=== PATIENT | female | born 1950 | race Caucasian/White ===

== ENCOUNTER 2019-10-25 01:34 | Outpatient (CLI) | payer MEDICARE, OTHER, SELFPAY ==
[2019-10-25 19:16] LABS: SARS-CoV-2 RNA PCR Negative
== END 2019-10-25 01:35 | disposition home or self-care (01) ==
LOC: ANHCOVIDDT 01:36
PROVIDERS: PCP Internal Medicine; Visit Provider Internal Medicine Gastroenterology
DX: Z01.818 Encounter for other preprocedural examination (principal); Z11.59 Encounter for screening for other viral diseases
CPT/HCPCS: 87635; C9803; U0003

== ENCOUNTER 2019-10-27 00:43 | Day surgery (SDC) | payer MEDICARE, OTHER, SELFPAY ==
[2019-10-19 14:24] VITALS: BMI 31.4
[2019-10-27 08:24] VITALS: BP 116/76; PULSE 72; RESP 17; TEMP 36.4; O2SAT 99
[2019-10-27] MEDS: LACTATED RINGERS 1,000 ML 150 ML IV CONT (08:34)
--- NOTE | 2019-10-27 08:57 | WPDANESEPPF ---
Anes - Initial Pre Proc Eval Procedure: Operation Date: 10/27/19 09:00 Proposed Procedures p Screening Colonoscopy - Ricki Coyle MD Date/Time: 10/27/19 08:57 Surgeon: Ricki Coyle MD Pre Op Diagnosis: Neoplasm Screening Patient Data Age: 69 Gender: F Height: 5 ft 2 in Weight: 77.9 kg Last Vital Signs Temp 97.6 F 10/27/19 08:24 Pulse 72 10/27/19 08:24 Resp 17 10/27/19 08:24 BP 116/76 10/27/19 08:24 Pulse Ox 99 10/27/19 08:24 Allergies Allergy/AdvReac Type Severity Reaction Status Date / Time cephalexin [From Keflex] Allergy Mild Rash Verified 10/27/19 08:20 Home Medications Medication Instructions Recorded Confirmed Type cholecalciferol (vitamin D3) 1,250 50,000 unit PO WEEKLY #13 tablet 09/11/19 10/27/19 Rx mcg (50,000 unit) tablet levothyroxine 50 mcg tablet 50 mcg PO DAILY #90 tablet 09/30/19 10/27/19 Rx vfwsrdkxxaks-udgi-chzbq acid 1 tablet PO DAILY 10/19/19 10/27/19 History [Centrum] multivitamin with minerals 1 tablet PO DAILY 10/27/19 10/27/19 History [Hair,Skin and Nails] Patient hx anesthesia problems: none Family hx anesthesia problems: none PMFSH Past Medical History Medical History (Updated 10/27/19 @ 08:53 by Compa Beckwith MD) Hypothyroid Social History Social History Smoking status: Never smoker Second hand tobacco smoke exposure: No Alcohol intake: current Anes - Eval Final PreProcedure Day of Procedure 10/27/19 08:57 Patient weight: normal Heart: regular rate and rhythm Lungs: clear to auscultation Airway: Mallampati scale class II Neurological: alert and oriented Last oral intake: >/= 8 hours ASA classification: II Emergent: no Anesthetic plan: proceed Anesthesia type and monitoring: general GIVS and standard monitoring Informed Consent: The patient's anesthetic plan and its attendant risks and benefits were discussed with the patient/family/POA. Questions were solicited and answers provided to the satisfaction of the patient/family/POA.
--- NOTE | 2019-10-27 08:59 | WPDGICN ---
Assessment and Plan Assessment and plan (1) Encounter for screening for colorectal malignant neoplasm: Code(s): Z12.11 - Encounter for screening for malignant neoplasm of colon; Z12.12 - Encounter for screening for malignant neoplasm of rectum Status: Acute Assessment and Plan: Patient at regular risk for colon cancer. Plan is for screening colonoscopy now in a 10 year intervals if no polyps are found. GI Consult Note Consult date/time: 10/27/19 08:59 HPI: Doris Silva is a 69 year old female seen in evaluation at the request of Dr George. Patient presents for neoplasia screening colonoscopy. Her current weight appetite bowel movements are normal. She denies abdominal pain. She denies any blood in her stools. Her bowel habits are regular. Her last colonoscopy was 10 years ago. Review of Systems Review of Systems: All systems reviewed & are unremarkable except as noted in HPI and below PMFSH Past Medical History Medical History Hypothyroid Family History Family History Mother Family history of malignant neoplasm of breast in first degree relative Acute myocardial infarction Family history of malignant neoplasm of thyroid Sibling Patient's sister is in good health Patient's brother is in good health Father Patient's father is Other Diabetes mellitus Family history of allergic disorder Hypertension Social History Social History Smoking status: Never smoker Second hand tobacco smoke exposure: No Alcohol intake: current Meds Home Medications and Allergies Home Medications Medication Instructions Recorded Confirmed Type cholecalciferol (vitamin D3) 1,250 50,000 unit PO WEEKLY #13 tablet 09/11/19 10/27/19 Rx mcg (50,000 unit) tablet levothyroxine 50 mcg tablet 50 mcg PO DAILY #90 tablet 09/30/19 10/27/19 Rx lzuzdxiwpbtx-vhxv-rlzlc acid 1 tablet PO DAILY 10/19/19 10/27/19 History [Centrum] multivitamin with minerals 1 tablet PO DAILY 10/27/19 10/27/19 History [Hair,Skin and Nails] Allergies Allergy/AdvReac Type Severity Reaction Status Date / Time cephalexin [From Keflex] Allergy Mild Rash Verified 10/27/19 08:20 Vital Signs Vital Signs - 24 hr 10/27/19 08:24 Temperature 97.6 F Pulse Rate 72 Respiratory Rate 17 Blood Pressure 116/76 Pulse Oximetry 99 Exam Narrative: Exam Narrative: Physical exam reveals her to be a alert. Vital signs stable. HEENT exam unremarkable. Lungs are clear to auscultation and percussion. Heart is without murmur or extra sounds. Abdominal exam bowel sounds are present soft nontender with no hepatosplenomegaly. Digital external rectal exam normal.
[2019-10-27 09:33] VITALS: BP 117/57; PULSE 65; RESP 18; O2SAT 94
[2019-10-27 09:43] VITALS: BP 109/63; PULSE 69; RESP 19; O2SAT 97
[2019-10-27 09:53] VITALS: BP 114/71; PULSE 61; RESP 18; O2SAT 98
== END 2019-10-27 10:03 | disposition home or self-care (01) ==
PROVIDERS: PCP Internal Medicine; Visit Provider Internal Medicine Gastroenterology
PROC: 0DJD8ZZ Inspection of Lower Intestinal Tract, Via Natural or Artificial Opening Endoscopic (ICD-10-PCS; CPT 45378; principal; 2019-10-27 09:00)
DX: Z12.11 Encounter for screening for malignant neoplasm of colon (principal); K64.8 Other hemorrhoids; E03.9 Hypothyroidism, unspecified
CPT/HCPCS: G0121; J2704; J7120

== ENCOUNTER 2020-05-10 07:15 | Outpatient (CLI) | payer MEDICARE, OTHER, SELFPAY ==
--- NOTE | ~2020-05-10 | MM_ITS ---
EXAMINATION: MM screening julio c BI w derek HISTORY: Screening mammogram TECHNIQUE: Craniocaudal and mediolateral oblique 3-D tomosynthesis images were obtained and synthetic 2-D images were generated. CAD analysis was submitted and interpreted. COMPARISON: 03/15/2019 bilateral diagnostic digital mammogram and limited left breast ultrasound 07/29/2018, 06/16/2017, 06/13/2016 bilateral digital screening mammogram examinations BREAST PARENCHYMAL COMPOSITION: The breasts are almost entirely fatty. FINDINGS: There is no evidence of suspicious mass, calcification, or architectural distortion to sugg est malignancy in either breast. There has been no suspicious interval change. IMPRESSION: 1. No mammographic evidence of malignancy. 2. Recommend routine screening mammography in one year. BI-RADS Category 1: Negative Reviewed, dictated and finalized at location A. ENT SERVICES DIRECTOR
== END 2020-05-10 07:16 | disposition home or self-care (01) ==
LOC: ANHIMG 07:19
PROVIDERS: PCP Internal Medicine; Visit Provider Nurse Practitioner Obstetrics & Gynecology
DX: Z12.31 Encounter for screening mammogram for malignant neoplasm of breast (principal)
CPT/HCPCS: 77063; 77067

== ENCOUNTER 2021-06-10 09:33 | Outpatient (CLI) | payer MEDICARE, OTHER, SELFPAY ==
--- NOTE | ~2021-06-10 | MM_ITS ---
EXAMINATION: MM screening julio c BI w derek HISTORY: Screening mammogram TECHNIQUE: Craniocaudal and mediolateral oblique 3-D tomosynthesis images were obtained and synthetic 2-D images were generated. CAD analysis was submitted and interpreted. COMPARISON: 05/10/2020 bilateral screening mammogram 03/15/2019 diagnostic bilateral mammogram and limited left breast ultrasound 07/29/2018 bilateral screening mammogram BREAST PARENCHYMAL COMPOSITION: The breasts are almost entirely fatty. FINDINGS: Several stable benign intramammary lymph nodes and occasional benign calcifications are aga in present. There is no evidence of suspicious mass, calcification, or architectural distortion to devries ggest malignancy in either breast. There has been no suspicious interval change. IMPRESSION: 1. No mammographic evidence of malignancy. 2. Recommend routine screening mammography in one year. BI-RADS Category 2: Benign finding(s). Reviewed, dictated and finalized at location A. CUTTER APPRENTICE
== END 2021-06-10 09:34 | disposition home or self-care (01) ==
LOC: ANHIMG 09:36
PROVIDERS: PCP Internal Medicine; Visit Provider Nurse Practitioner Obstetrics & Gynecology
DX: Z12.31 Encounter for screening mammogram for malignant neoplasm of breast (principal)
CPT/HCPCS: 77063; 77067

== ENCOUNTER → 2021-08-22 10:14 | Outpatient (CLI) | payer MEDICARE, OTHER, SELFPAY ==
--- NOTE | ~2021-08-22 | DEXA_ITS ---
Bone Density Report Name: MATTHIEU ARSHAD Age: 71 Sex: Female Ethnicity: White Date of : 1950 Indication: postmenopausal; screening for osteoporosis; hysterectomy; Referring Provider: Sybil, Rima Singer Study: Bone densitometry was performed. Exam Date: August 22, 2021 Accession number: [id number] Bone Density: Region BMD T-score Z-score Classification AP Spine (L1-L4) 0.849 -1.8 0.3 Osteopenia Femoral Neck (Left) 0.633 -1.9 -0.1 Osteopenia Total Hip (Left) 0.812 -1.1 0.5 Osteopenia Femoral Neck (Right) 0.654 -1.8 0.1 Osteopenia Total Hip (Right) 0.828 -0.9 0.6 Normal Total Hip Mean 0.820 -1.0 0.6 Normal World Health Organization criteria for BMD impression classify patients as: Normal (T-score at or above -1.0), Osteopenia (T-score between -1.0 and -2.5), or Osteoporosis (T-score at or below -2.5). 10-year Fracture Risk(1): Major Osteoporotic Fracture 11% Hip Fracture 1.9% Reported Risk Factors: [place] (), Neck BMD=0.633, BMI=35.9 (1) FRAX(R) Version 3.08. Fracture probability calculated for an untreated patient. Fracture probability may be lower if the patient has received treatment. Clinical Information Provided by Patient: Has used the following medications: Vitamin D Has the following medical conditions: Hysterectomy Patient maximum height was 62 Menopause Age: 48 No regular weight bearing exercise Does not regularly consume dairy products Drinks caffeinated beverages Onset of menses at age 13 Number of children 2 Impression: The patient has low bone mass, based on the Left Femoral Neck T-score. The patient has an estimated ten-year risk of hip fracture of 1.9% and an estimated ten-year risk of major fracture of 11%, based on the WHO FRAX algorithm. Discussion: BONE DENSITY IS LOW AT ONE OR MORE SKELETAL SITES. This patient's lowest T-score is low at one or more skeletal sites. It meets the World Health Organization's (WHO) criteria for ?low bone mass? (T-score between -1.0 and -2.5). The patient's 10-year risk of fracture as calculated by FRAX is less than the threshold where pharmacological therapy is recommended by the National Osteoporosis Foundation (NOF). However, all treatment decisions require clinical judgment and consideration of individual patient factors, including patient preferences, comorbidities, previous drug use, risk factors not captured in the FRAX model (e.g., frailty, falls, vitamin D deficiency, increased bone turnover, interval significant decline in bone density) and possible under or overestimation of fracture risk by FRAX. The patient should follow a healthful lifestyle (good nutrition with adequate calcium and vitamin D, and appropriate weight-bearing exercise). Follow-Up: Consider repeating this study in 2 to 3 years to reassess this
== END ==
PROVIDERS: PCP Internal Medicine; Visit Provider Nurse Practitioner Obstetrics & Gynecology
DX: Z78.0 Asymptomatic menopausal state (principal); M85.88 Other specified disorders of bone density and structure, other site; M85.852 Other specified disorders of bone density and structure, left thigh; M85.851 Other specified disorders of bone density and structure, right thigh
CPT/HCPCS: 77080

== ENCOUNTER 2021-11-08 11:50 | Emergency (ER) | payer MEDICARE, OTHER, SELFPAY ==
--- NOTE | ~2021-11-08 | XR_ITS ---
EXAMINATION: XR chest 2V 11/08/2021 12:34 INDICATION: Shortness of breath PROCEDURE: 2 view chest COMPARISON: No prior studies FINDINGS: The lungs are clear. The cardiomediastinal silhouette is within normal limits. There are no pleural effusions. There is no pneumothorax suspected. There are cholecystectomy clips. IMPRESSION: 1: NO ACUTE CARDIOPULMONARY DISEASE. Reviewed, dictated and finalized at location A.
--- NOTE | ~2021-11-08 | XR_ITS ---
EXAMINATION: XR shoulder LT min 2V DATE: 11/08/2021 14:11 INDICATION: Left shoulder pain. TECHNIQUE: 4 views of left shoulder were obtained. COMPARISON: None. FINDINGS: Bone alignment is normal. No fracture. Joint spaces are normal. IMPRESSION: 1. Normal left shoulder. Reviewed, dictated and finalized at location A. IMPRESSION: 1. Normal left shoulder.
[2021-11-08 11:53] VITALS: BP 156/92; PULSE 80; RESP 16; TEMP 36.4; O2SAT 99
--- NOTE | 2021-11-08 11:58 | ECG_ITS ---
Measurements Intervals [place] Rate: 74 P: 43 ME: 142 QRS: 32 QRSD: 77 T: 29 QT: 354 QTc: 395 Interpretive Statements SINUS RHYTHM POSSIBLE LEFT ATRIAL ENLARGEMENT BORDERLINE T WAVE ABNORMALITY- INFERIOR LEADS BORDERLINE ECG Electronically Signed On 11-08-2021 16:46:07 CDT by Neil Horn D.O.
[2021-11-08 12:23] LABS: Basophils Percent Auto 0.6 % (0.2-1.2); Eosinophils Absolute Auto 0.2 K/mm3 (0-0.3); Eosinophils Percent Auto 2.9 % (0-4.4); Hematocrit 44.3 % (37.0-47.0); Hemoglobin 14.2 g/dL (12.0-15.0); Immature Granulocyte Absolute 0.02 K/mm3 (0.00-0.031); Immature Granulocyte Percent A 0.3 % (0-0.5); Lymphocytes Absolute Auto 1.66 K/mm3 (0.9-3.2); Mean Corpuscular HGB Conc 32.1 g/dl (32-36); Mean Corpuscular Hemoglobin 29.6 pg (26-34); Mean Corpuscular Volume 92.5 fl (80-100); Mean Platelet Volume 11.4 fl (7.4-10.4); Monocytes Absolute Auto 0.7 K/mm3 (0.1-0.6); Monocytes Percent Auto 9.4 % (2.6-8.5); Neutrophils Absolute Auto 4.4 K/mm3 (1.3-6.7); Neutrophils Percent Auto 62.8 % (45.5-73.1); Platelet Count Result 233 k/mm3 (150-375); Red Blood Count 4.79 M/mm3 (4.2-5.4); Red Cell Distribution Width 12.9 % (11.5-14.5); White Blood Count 6.9 K/mm3 (4.5-10.0)
[2021-11-08 12:35] LABS: Alanine Aminotransferase 20 U/L (6-35); Albumin Level 4.7 g/dL (3.5-5.1); Alkaline Phosphatase 84 U/L (38-126); Anion Gap 7 mmol/L (8-16); Aspartate Amino Transferase 24 U/L (14-36); Bilirubin,Total 0.8 mg/dL (0.2-1.3); Blood Urea Nitrogen 14 mg/dL (7-17); Calcium 9.6 mg/dL (8.4-10.2); Carbon Dioxide 28 mmol/L (22-30); Chloride 106 mmol/L (98-107); Estimated CRCL calculation 50 ml/min; Estimated Glomerular Filt Rate > 60; Glucose 101 mg/dL (65-110); Potassium 4.3 mmol/L (3.4-5.0); Sodium 141 mmol/L (137-145)
[2021-11-08 13:09] VITALS: BP 154/88; PULSE 70; PULSE 76; RESP 14; O2SAT 100
[2021-11-08 13:10] VITALS: O2SAT 100
[2021-11-08 14:15] LABS: INR 1.1; Partial Thromboplastin Time 30.8 SECONDS (22.3-36.8); Prothrombin Time 13.3 Seconds (11.1-14.7)
[2021-11-08 14:19] LABS: D Dimer 0.27 ug/mL (<0.48)
[2021-11-08 14:19] LABS: Troponin I < 0.012 ng/mL (0.000-0.034)
--- NOTE | 2021-11-08 14:46 | ED.SOB ---
HPI - SOB/Dyspnea General Chief Complaint: Shortness of Breath/Dyspnea Stated Complaint: left arm pain, fast hr Time Seen by Provider: 11/08/21 13:09 Source: patient and RN notes reviewed Mode of arrival: ambulatory Limitations: no limitations History of Present Illness HPI Narrative: This is a 71 year old female who presents for evaluation of shortness of breath and left shoulder pain. Patient has been having left shoulder pain for a year. She reports her pain is mostly at night. This morning her pain seems to last longer. She reports left shoulder pain that radiates to her elbow. This pain is worse with lifting her arm. Patient also states she tested positive for COVID in the beginning of September and she had a mild case. Since September, she has felt shortness of breath with exertion. She noticed that her heart rate increased to [address] but her oxygen saturation was fine. She denies having associated chest pain . She also reports October 18 and she had episode of nausea, decreased appetite, diarrhea and fatigue. She also had another episode 2 weeks ago. She was seen by her PCP yesterday for evaluation of her dyspnea on exertion. She was prescribed advair, and her PCP plans to order stress test and ECHO. She states her shortness of breath has improved since using her advair. She came to ER today because they were concerned about her left shoulder pain, and wanted to make sure she did not have heart attack. She denies chest pain. She also denies left shoulder pain at this time. Related Data Home Medications Medication Instructions Recorded Confirmed multivitamin-ferrous 1 tablet PO DAILY 10/19/19 11/07/21 fumarate-folic acid 18 mg-400 mcg tablet (Centrum) multivitamin with minerals 1 tablet PO DAILY 10/27/19 11/07/21 (Hair,Skin and Nails tablet) ketoconazole 2 % shampoo 1 applic topical 2XW 07/18/20 11/07/21 oxiconazole 1 % lotion (Oxistat) 1 applic topical DAILY 07/18/20 11/07/21 hydroxychloroquine 200 mg tablet 200 mg PO DAILY 10/14/21 11/07/21 (Plaquenil) Allergies Allergy/AdvReac Type Severity Reaction Status Date / Time cephalexin [From Keflex] Allergy Mild Rash Verified 11/07/21 09:24 Review of Systems Review of Systems: All systems reviewed & are unremarkable except as noted in HPI and below Constitutional: Constitutional: Denies chills, Reports fatigue and Denies fever(s) Cardiovascular: Cardiovascular: Denies chest pain, Reports rapid heart rate and Denies radiating jaw, neck or arm pain Respiratory: Respiratory: Denies chest congestion, Denies cough and Reports dyspnea Gastrointestinal: Gastrointestinal: Denies abdominal pain, Reports diarrhea and Reports nausea Neurologic: Denies headache(s) and Denies focal weakness Psychiatric: Psychiatric: Reports anxiety PMFSH Past Medical History Medical History Hypothyroid Family History Family History Mother Family history of malignant neoplasm of breast in first degree relative Acute myocardial infarction Family history of malignant neoplasm of thyroid Sibling Patient's sister is in good health Patient's brother is in good health Father Patient's father is Other Diabetes mellitus Family history of allergic disorder Hypertension Social History Social History Smoking status: Never smoker Second hand tobacco smoke exposure: No Alcohol intake: current Exam Narrative: GENERAL: Well-appearing, well-nourished, and in no acute distress. HEAD: Normocephalic, atraumatic EYES: PERRLA and EOMI, conjunctiva clear without discharge EARS: TM's clear bilaterally without erythema or dullness NECK: Supple, without lymphadenopathy or mass RESPIRATORY: No respiratory distress, Airway patent, Respirations non-labored
== END 2021-11-08 15:12 | disposition home or self-care (01) ==
PROVIDERS: Emergency Provider General Practice; PCP Internal Medicine
DX: R06.00 Dyspnea, unspecified (principal); M25.512 Pain in left shoulder; Z86.16 Personal history of COVID-19; E03.9 Hypothyroidism, unspecified; R94.31 Abnormal electrocardiogram [ECG] [EKG]
CPT/HCPCS: 36415; 71046; 73030; 80053; 84484; 85025; 85380; 85610; 85730; 93005; 99284

== ENCOUNTER 2021-11-29 07:27 | Outpatient (CLI) | payer MEDICARE, OTHER, SELFPAY ==
--- NOTE | 2021-11-29 | EST_ITS ---
Patient Info Name: Doris Silva Age: 71 years : 1950 Gender: Female Ht: 61 in Wt: 190 lbs BSA: 1.97 m2 Exam Date: 11/29/2021 10:14 AM Exam Location: [facility] Stress Patient Status: Outpatient Admit Date: 11/29/2021 Staff Ordering Physician: Ramiro George DO Attending Provider: NEIL FRANK DO Exercise Technologist: Ana Maria Kirkland RDCS Exercise Physician: Neil Frank DO Exam Type: CA stress lakeisha w NM Study Info Indications R06.09 - Other forms of dyspnea A regadenoson stress test was performed. Summary 1. 1. Negative lexiscan stress test for ischemic ST changes by ECG criteria. 2. 2. Stable hemodynamics throughout the test. 3. 3. Nuclear scan to follow and will be reported separately. Please correlate with it. 4. 4. Patient informed of the above results. Protocol: Lexiscan Stress ECG Details Stage: REST Duration (min): 1 min : 54 sec HR (bpm): 55 SBP (mmHg): 132 DBP (mmHg): 72 Stage: REST Duration (min): 11 min : 7 sec HR (bpm): 61 SBP (mmHg): 132 DBP (mmHg): 72 Stage: STAGE 1 Duration (min): 1 min : 0 sec HR (bpm): 99 SBP (mmHg): 127 DBP (mmHg): 91 Stage: RECOVERY Duration (min): 1 min : 0 sec HR (bpm): 79 SBP (mmHg): 136 DBP (mmHg): 87 Stage: RECOVERY Duration (min): 2 min : 0 sec HR (bpm): 70 SBP (mmHg): 136 DBP (mmHg): 87 Stage: RECOVERY Duration (min): 3 min : 0 sec HR (bpm): 66 SBP (mmHg): 136 DBP (mmHg): 83 Stage: RECOVERY Duration (min): 4 min : 0 sec HR (bpm): 64 SBP (mmHg): 132 DBP (mmHg): 80 Stage: RECOVERY Duration (min): 4 min : 5 sec HR (bpm): 64 SBP (mmHg): 132 DBP (mmHg): 80 Rest HR: 61 bpm Peak HR: 99 bpm Rest Sys BP: 132 mmHg Peak Sys BP: 136 mmHg Max Pred HR: 150 bpm % Max Pred HR: 66 % Target HR: 128 bpm Max RPP: 13,464 bpm*mmHg Termination Reason: Completed protocol Cardiac Symptoms: Shortness of breath Total Time: 1 min : 0 sec Rest Caraballo BP: 72 mmHg Peak Caraballo BP: 87 mmHg Total Dose: 0.4 mg Resting ECG Sinus rhythm. Stress ECG No ST changes. Arrhythmias None. Report Signatures
--- NOTE | ~2021-11-29 | NM_ITS ---
EXAMINATION: NM lakeisha stress w perfusion DATE: 11/29/2021 11:37 INDICATION: Other forms of dyspnea. TECHNIQUE: Rest images were obtained following intravenous administration of 11.5 mCi Tc99m tetrofosm in (Myoview). The patient was infused intravenously with Lexiscan (regadenoson). Then, 32.7 mCi Tc99m tetrofosmin (Myoview) was administered intravenously, and supine and prone stress images were obtain ed. Data was reconstructed into short axis and horizontal and vertical long axis SPECT images. Gated SPECT images were also obtained. COMPARISON: None. FINDINGS: There is no definite reversible or fixed perfusion abnormality to suggest ischemia or infar ction. There is no segmental wall motion abnormality. Left ventricular ejection fraction measures > 70%. IMPRESSION: 1. No definite ischemia or infarct. 2. Normal left ventricular ejection fraction measuring >70%. Reviewed, dictated and finalized at location A.
--- NOTE | 2021-11-29 07:35 | ECHO_ITS ---
Patient Info Name: Doris Silva Age: 71 years : 1950 Gender: Female Ht: 61 in Wt: 190 lbs BSA: 1.97 m2 HR: 64 bpm BP: 135 / 84 mmHg Technical Quality: Good Exam Date: 11/29/2021 8:03 AM Exam Location: [facility] Patient Status: Outpatient Admit Date: 11/29/2021 Staff Ordering Physician: Ramiro George DO Lead Pharmacy Technician: Ana Maria Kirkland RDCS Attending Provider: Ramiro George DO Referring Physician: Ariel CLOUD; Exam Type: CA echo doppler color flow Study Info Indications R06.09 - Other forms of dyspnea Complete two-dimensional, color flow and Doppler transthoracic echocardiogram is performed. Summary 1. Complete two-dimensional, color flow and Doppler transthoracic echocardiogram is performed. 2. Left ventricular chamber dimension is normal. 3. Left ventricular systolic function is normal, estimated at 65-70%. 4. There is mildly increased left ventricular wall thickness. 5. The left ventricular diastolic function is grade II diastolic dysfunction. 6. E/e' 6 is not elevated. 7. Global longitudinal strain is normal at -17.8%. 8. Left atrial chamber dimension is mildly enlarged. 9. There is moderate aortic valve sclerosis. 10. There is trace mitral valve regurgitation. 11. There is trace tricuspid valve regurgitation. 12. No pulmonary hypertension, estimated pulmonary arterial systolic pressure is 28 mmHg. Left Ventricle E/e' 6 is not elevated. Global longitudinal strain is normal at -17.8%. Left ventricular chamber dimension is normal. Left ventricular systolic function is normal, estimated at 65-70%. There is mildly increased left ventricular wall thickness. The left ventricular diastolic function is grade II diastolic dysfunction. Right Ventricle Right ventricular systolic function is normal and with normal TAPSE 1.7 cm. Right ventricular chamber dimension is normal. Left Atria Left atrial chamber dimension is mildly enlarged. Right Atria Right atrial chamber dimension is normal. Aortic Valve The aortic valve is trileaflet. There is moderate aortic valve sclerosis. There is no aortic valve stenosis. There is no aortic valve regurgitation. Pulmonic Valve There is no pulmonic regurgitation. Mitral Valve There is no mitral valve stenosis. There is trace mitral valve regurgitation. Tricuspid Valve There is trace tricuspid valve regurgitation. No pulmonary hypertension, estimated pulmonary arterial systolic pressure is 28 mmHg. Pericardium/Pleural There is no pericardial effusion. Inferior Vena Cava Normal inferior vena cava with >50% collapse upon inspiration consistent with normal right atrial pressure, 5 mmHg. Aorta The aortic root size at the sinus of Valsalva is normal. Left Ventricular Outflow Tract Name Value Normal LVOT 2D LVOT Diameter 1.9 cm LVOT Doppler LVOT Peak Gradient 3 mmHg LVOT Mean Gradient 2 mmHg LVOT VTI 20 cm LVOT VTI/AV VTI Ratio 0.7 LVOT Stroke Volume 57 ml
== END 2021-11-29 07:28 | disposition home or self-care (01) ==
LOC: ANHCARD 07:29
PROVIDERS: PCP Internal Medicine; Visit Provider Internal Medicine
DX: R06.09 Other forms of dyspnea (principal)
CPT/HCPCS: 78452; 93017; 93306; A9502; J2785

== ENCOUNTER 2022-04-07 12:41 | Outpatient (CLI) | payer MEDICARE, OTHER, SELFPAY ==
[2022-04-07 14:39] LABS: Influenza A QL RT-PCR Negative (Negative); Influenza B QL RT-PCR Negative (Negative); SARS-CoV-2 RNA PCR Negative
== END 2022-04-07 12:42 | disposition home or self-care (01) ==
LOC: ANHLAB 12:44
PROVIDERS: PCP Internal Medicine; Visit Provider Internal Medicine
DX: R50.9 Fever, unspecified (principal); Z20.822 Contact with and (suspected) exposure to COVID-19
CPT/HCPCS: 87636

== ENCOUNTER → 2022-04-09 15:23 | Outpatient (CLI) | payer MEDICARE, OTHER, SELFPAY ==
--- NOTE | ~2022-04-09 | XR_ITS ---
XR chest 2V DATE: 04/09/2022 15:42 INDICATION: Cough TECHNIQUE: 2 views COMPARISON: 11/08/2021 PA and lateral chest FINDINGS: Normal heart size. Aortic arch calcification. No hilar or mediastinal enlargement. 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 No pulmonary infiltrate or consoli dation, pleural effusion or pulmonary vascular congestion or pneumothorax. Moderate sized hiatal hernia. Status post cholecystectomy. Diffuse osteopenia. There is degenerative spurring of the thoracic spine. IMPRESSION: No active cardiopulmonary disease Aortic atherosclerosis Right diaphragmatic eventration Moderate hiatal hernia Reviewed, dictated and finalized at location B. CLAIM REPRESENTATIVE
== END ==
PROVIDERS: PCP Internal Medicine; Visit Provider Internal Medicine
DX: R05.9 Cough, unspecified (principal); I70.0 Atherosclerosis of aorta; K44.9 Diaphragmatic hernia without obstruction or gangrene
CPT/HCPCS: 71046

== ENCOUNTER 2022-06-12 09:13 | Outpatient (CLI) | payer MEDICARE, OTHER, SELFPAY ==
--- NOTE | ~2022-06-12 | MM_ITS ---
EXAMINATION: MM screening julio c BI w derek HISTORY: Screening mammogram TECHNIQUE: Craniocaudal and mediolateral oblique 3-D tomosynthesis images were obtained and synthetic 2-D images were generated. CAD analysis was submitted and interpreted. COMPARISON: June 10, 2021, May 10, 2020 bilateral screening mammogram examinations BREAST PARENCHYMAL COMPOSITION: The breasts are almost entirely fatty. FINDINGS: There is no evidence of suspicious mass, calcification, or architectural distortion to sugg est malignancy in either breast. There has been no suspicious interval change. IMPRESSION: 1. No mammographic evidence of malignancy. 2. Recommend routine screening mammography in one year. BI-RADS Category 1: Negative Reviewed, dictated and finalized at location A. IFE
== END 2022-06-12 09:14 | disposition home or self-care (01) ==
PROVIDERS: PCP Internal Medicine; Visit Provider Nurse Practitioner Obstetrics & Gynecology
DX: Z12.31 Encounter for screening mammogram for malignant neoplasm of breast (principal)
CPT/HCPCS: 77063; 77067

== ENCOUNTER 2023-04-24 13:31 | Outpatient (CLI) | payer MEDICARE, OTHER, SELFPAY ==
--- NOTE | 2023-04-24 13:41 | ECHO_ITS ---
Patient Info Name: Doris Silva Age: 73 years : 1950 Gender: Female Ht: 61 in Wt: 206 lbs BSA: 2.06 m2 HR: 76 bpm BP: 138 / 90 mmHg Technical Quality: Fair Exam Date: 04/24/2023 1:53 PM Exam Location: Echo Lab Patient Status: Outpatient Admit Date: 04/24/2023 Staff Ordering Physician: Rhett Jacobsen PA-C Attending Provider: Rhett Jacobsen PA-C Referring Physician: Ann-Marie FREEMAN; Exam Type: CA echo doppler color flow Study Info Indications R01.1 - Cardiac murmur, unspecified Complete two-dimensional, color flow and Doppler transthoracic echocardiogram is performed. Summary 1. Complete two-dimensional, color flow and Doppler transthoracic echocardiogram is performed. 2. Left ventricular chamber dimension is normal. 3. Ventricular septum is sigmoid shaped. No LVOT obstruction. 4. Left ventricular systolic function is normal, estimated at 60-65%. 5. There is mild concentric increased left ventricular wall thickness. 6. The left ventricular diastolic function is grade I diastolic dysfunction. 7. E/e' 7 is not elevated. 8. Right atrial chamber dimension is mildly enlarged. 9. There is moderate aortic valve sclerosis. 10. There is mild aortic valve stenosis with a peak velocity of 184 cm/s, mean gradient of 7 mmHg, and aortic valve area of 1.8 cm2. 11. The mitral valve has mildly calcified annulus. 12. There is mild mitral valve regurgitation. 13. There is trace tricuspid valve regurgitation. 14. No pulmonary hypertension, estimated pulmonary arterial systolic pressure is 32 mmHg. 15. There is trace pulmonic regurgitation. Left Ventricle E/e' 7 is not elevated. Ventricular septum is sigmoid shaped. No LVOT obstruction. Left ventricular chamber dimension is normal. Left ventricular systolic function is normal, estimated at 60-65%. There is mild concentric increased left ventricular wall thickness. The left ventricular diastolic function is grade I diastolic dysfunction. Right Ventricle Right ventricular systolic function is normal and with normal TAPSE 2.5 cm. Right ventricular chamber dimension is normal. Left Atria Left atrial chamber dimension is normal. Right Atria Right atrial chamber dimension is mildly enlarged. Aortic Valve The aortic valve is trileaflet. There is moderate aortic valve sclerosis. There is mild aortic valve stenosis with a peak velocity of 184 cm/s, mean gradient of 7 mmHg, and aortic valve area of 1.8 cm2. There is no aortic valve regurgitation. Pulmonic Valve There is trace pulmonic regurgitation. Mitral Valve The mitral valve has mildly calcified annulus. There is no mitral valve stenosis. There is mild mitral valve regurgitation. Tricuspid Valve There is trace tricuspid valve regurgitation. No pulmonary hypertension, estimated pulmonary arterial systolic pressure is 32 mmHg. Pericardium/Pleural There is no pericardial effusion. Inferior Vena Cava Normal inferior vena cava with >50% collapse upon inspiration consistent with normal right atrial pressure, 5 mmHg. Aorta The aortic root size at the sinus of Valsalva is normal. Left Ventricular Outflow Tract Name Value Normal LVOT 2D LVOT Diameter 2.0 cm LVOT Doppler LVOT Peak Gradient
== END 2023-04-24 13:32 | disposition home or self-care (01) ==
LOC: ANHCARD 13:32
PROVIDERS: PCP Internal Medicine; Visit Provider Physician Assistant
DX: R01.1 Cardiac murmur, unspecified (principal); Z12.11 Encounter for screening for malignant neoplasm of colon; I34.0 Nonrheumatic mitral (valve) insufficiency; I35.0 Nonrheumatic aortic (valve) stenosis
CPT/HCPCS: 93306

== ENCOUNTER 2023-07-06 08:09 | Outpatient (CLI) | payer MEDICARE, OTHER, SELFPAY ==
--- NOTE | ~2023-07-06 | MM_ITS ---
EXAMINATION: MM screening julio c BI w derek HISTORY: Screening TECHNIQUE: Craniocaudal and mediolateral oblique 3-D tomosynthesis images were obtained and synthetic 2-D images were generated. CAD analysis was submitted and interpreted. COMPARISON: Comparison to multiple prior studies sequentially, with oldest reviewed study dated 06/16. BREAST PARENCHYMAL COMPOSITION: Not dense: There are scattered areas of fibroglandular density. FINDINGS: There is no evidence of suspicious mass, calcification, or architectural distortion to sugg est malignancy in either breast. There has been no suspicious interval change. IMPRESSION: 1. No mammographic evidence of malignancy. 2. Recommend routine screening mammography in one year. BI-RADS Category 1: Negative Reviewed, dictated and finalized at location A.
== END 2023-07-06 08:10 | disposition home or self-care (01) ==
LOC: ANHIMG 08:12
PROVIDERS: PCP Internal Medicine; Visit Provider Nurse Practitioner Obstetrics & Gynecology
DX: Z12.31 Encounter for screening mammogram for malignant neoplasm of breast (principal)
CPT/HCPCS: 77063; 77067

== ENCOUNTER 2023-10-30 08:28 | Outpatient (CLI) | payer MEDICARE, OTHER, SELFPAY ==
--- NOTE | ~2023-10-30 | DEXA_ITS ---
Bone Density Report Name: MATTHIEU ARSHAD Age: 73 Sex: Female Ethnicity: White Date of : 1950 Indication: postmenopausal; screening for osteoporosis; height loss; hysterectomy; Referring Provider: TR, EDYTA Singer Study: Bone densitometry was performed. Exam Date: October 30, 2023 Accession number: [id number] Bone Density: Region BMD T-score Z-score Classification AP Spine(L1, L2, L3) 0.817 -1.8 0.4 Osteopenia Femoral Neck (Left) 0.643 -1.9 0.1 Osteopenia Total Hip (Left) 0.922 -0.2 1.5 Normal Femoral Neck (Right) 0.646 -1.8 0.1 Osteopenia Total Hip (Right) 0.910 -0.3 1.4 Normal Total Hip Mean 0.916 -0.3 1.5 Normal World Health Organization criteria for BMD impression classify patients as: Normal (T-score at or above -1.0), Osteopenia (T-score between -1.0 and -2.5), or Osteoporosis (T-score at or below -2.5). 10-year Fracture Risk(1): Major Osteoporotic Fracture 10% Hip Fracture 2.0% Reported Risk Factors: [place] (), Neck BMD=0.643, BMI=38.9 (1) FRAX(R) Version 3.08. Fracture probability calculated for an untreated patient. Fracture probability may be lower if the patient has received treatment. Previous Exams: Region Exam Age BMD T-score BMD Change BMD Change Date g/cm2 vs Baseline vs Previous AP Spine (L1-L3) 10/30/2023 73 0.817 -1.8 -0.099 (-10.9% -0.096 (-10.5% 04/26/2015 65 0.914 -0.9 -0.003 (-0.3%) -0.003 (-0.3%) 04/19/2012 62 0.917 -0.9 Total Hip(Left) 10/30/2023 73 0.922 -0.2 0.107 (13.1%)# 0.052 (6.0%)* 04/26/2015 65 0.871 -0.6 0.055 (6.7%)# 0.055 (6.7%)# 04/19/2012 62 0.816 -1.0 Total Hip(Right) 10/30/2023 73 0.910 -0.3 0.060 (7.0%)# 0.054 (6.4%)* 04/26/2015 65 0.856 -0.7 0.005 (0.6%)# 0.005 (0.6%)# 04/19/2012 62 0.850 -0.8 *Denotes significance at 95% confidence level, LSC for AP Spine = 0.022 g/cm2, LSC for Total Hip = 0.027 g/cm2 # Denotes dissimilar scan types or analysis methods Clinical Information Provided by Patient: Has used the following medications: Vitamin D, Calcium Has the following medical conditions: Hysterectomy Patient maximum height was 62 Menopause Age: 48 No regular weight bearing exercise Drinks caffeinated beverages Onset of menses at age 14 Number of children 2 Impression: The patient has low bone mass, based on the Left Femoral Neck T-score. The patient has an estimated ten-year risk of hip fracture
== END 2023-10-30 08:29 | disposition home or self-care (01) ==
LOC: ANHIMG 08:30
PROVIDERS: PCP Internal Medicine; Visit Provider Nurse Practitioner Obstetrics & Gynecology
DX: M85.88 Other specified disorders of bone density and structure, other site (principal); M85.852 Other specified disorders of bone density and structure, left thigh; M85.851 Other specified disorders of bone density and structure, right thigh
CPT/HCPCS: 77080

== ENCOUNTER 2023-11-17 12:03 | Outpatient (CLI) | payer MEDICARE, OTHER, SELFPAY ==
[2023-11-17 12:59] LABS: Strep Group A RT-PCR NOT DETECTED (Negative)
== END 2023-11-17 12:04 | disposition home or self-care (01) ==
LOC: ANHLAB 12:06
PROVIDERS: PCP Internal Medicine; Visit Provider Internal Medicine
DX: Z20.9 Contact with and (suspected) exposure to unspecified communicable disease (principal)
CPT/HCPCS: 87651

== ENCOUNTER 2024-07-07 08:30 | Outpatient (CLI) | payer MEDICARE, OTHER, SELFPAY ==
--- NOTE | ~2024-07-07 | MM_ITS ---
EXAMINATION: MM screening julio c BI w derek HISTORY: Screening TECHNIQUE: Craniocaudal and mediolateral oblique 3-D tomosynthesis images were obtained and synthetic 2-D images were generated. CAD analysis was submitted and interpreted. COMPARISON: Comparison to multiple prior studies sequentially, with oldest reviewed study dated 07/29. BREAST PARENCHYMAL COMPOSITION: Not Dense: The breasts are almost entirely fatty. FINDINGS: There is no evidence of suspicious mass, calcification, or architectural distortion to sugg est malignancy in either breast. There has been no suspicious interval change. IMPRESSION: 1. No mammographic evidence of malignancy. 2. Recommend routine screening mammography in one year. BI-RADS Category 1: Negative Reviewed, dictated and finalized at location []
--- OUTSIDE RECORDS SUMMARY | 2024-07-07 08:39 | XMS_ITS | Clinical Summary ---
Author Organization [facility] Address [address] [place] [address] Care Team Providers Care Systems Test Technician Name Role Phone Ramiro George Kassy MILLIGAN Primary Care Provider [phone] Source Comments [facility] and Associated Physician Practices is amultiple site organization consisting of ambulatory clinics and hospital sitesin [place], [place], [place] and [place]. This disclosure is being madepursuant to the Care Everywhere program and may not contain all information available regarding this patient. Last updated 18.[email or web address] Allergies Active Allergy Reactions Criticality Noted Date Comments Cephalexin Itching Low 06/28/2015 Social History Tobacco Use Types Packs/Day Years Used Date Smoking Tobacco: Never Alcohol Use Standard Drinks/Week Comments Yes 0.8 (1 standard drink = 0.6 oz p ure alcohol) Sex and Gender Information Value Date Recorded Sex Assigned at Not on file Gender Identity Not on file Sexual Orientation Not on file Last Filed Vital Signs Vital Sign Reading Time Taken Comments Blood Pressure 147/87 06/28/2015 2:40 PM SOCIAL STAFF WORKER Pulse 96 06/28/2015 2:40 PM SOCIAL STAFF WORKER Temperature - - Respiratory Rate - - Oxygen Saturation 100% 06/28/2015 2:40 PM SOCIAL STAFF WORKER Inhaled Oxygen Concentration - - Weight 90.7 kg (200 lb) 06/28/2015 2:40 PM SOCIAL STAFF WORKER Height 157.5 cm (5' 2 ) 06/28/2015 2:40 PM SOCIAL STAFF WORKER Body Mass Index 36.58 06/28/2015 2:40 PM SOCIAL STAFF WORKER Plan of Treatment Health Maintenance Due Date Last Done Comments BONE DENSITY TESTING 1950 COLOGLETTY (AGES 45-75) - COL ON CA SCREENING 1950 COLON MONITORING 1950 COLONOSCOPY - COLON CA SCREENING 1950 CT COLONOGRAPHY - COLON CA SCREENING 1950 Colorectal Cancer Screening 1950 FIT - COLON CA SCREENING 1950 FLEX SIG - COLON CA SCREENING 1950 LIPID TESTING 1950 MAMMOGRAM 1950 MEDICARE AWV 12 MONTHS 1950 HEPATITIS C SCREENING 02/16/1969 DTAP/TDAP/TD VACCINES (1 - Tdap) 1970 PNEUMOCOCCAL VACCINE 50+ (1 of 1 - PCV) 2001 ZOSTER VACCINE (1 of 2) 2001 COVID-19 VACCINE (1 - 2023-2 5 season) 2023 INFLUENZA VACCINE (#1) 2023 DEPRESSION SCREENING 04/20/2024 Respiratory Syncytial Virus (RSV) Vaccine Pt: or over 60 yrs (1 - 1-dose 75+ series) 2026 HEPATITIS B VACCINE Aged Out No longe r eligible based on patient's age to complete this topic HIB VACCINE Aged Out No longer eligi ble based on patient's age to complete this topic HPV VACCINE Aged Out No longer eligi ble based on patient's age to complete this topic MENINGOCOCCAL (Group B) VACC INE SHARED DECISION-MAKING Aged Out No longer eligibl e based on patient's age to complete this topic MENINGOCOCCAL GROUPS A/C/Y/W VACCINE Aged Out No longer eligible b ased on patient's age to complete this topic Care Teams Systems Test Technician Relationship Specialty Start Date End Date Ramiro George DO [address] [place] [address] PCP - General 07/19/13
--- OUTSIDE RECORDS SUMMARY | 2024-07-07 08:39 | XMS_ITS | Clinical Summary ---
Author Organization [address] Address [address] [place] [id number] Care Team Providers Care Associate Juvenile Court Judge Name Role Phone Kacy Sosa Primary Care Provider + Allergies Active Allergy Reactions Criticality Noted Date Comments Cephalexin Itching,Unknown Low 06/28/2015 Medications clobetasoL (TEMOVATE) 0.05 % external solution APPLY SOLUTION TOPICALLY TWICE DAILY TO HAIRLINE Active nystatin ointment APPLY TO AFFECTED AREA 2 TO 3 TIMES A WEEK Active multivit-mineral -iron-lutein tablet Take by mouth Active zinc gluconate 50 mg tablet Take 1 tablet (50 mg total) by mouth daily Active cholecalciferol (VITAMIN D-3) 2000 unit tablet Act geovany calcium citrate-vitamin D3 (CITRACAL WITH D) 315 mg-6.25 mcg (250 unit) per tablet Take 1 tablet by mouth daily Active ketoconazole (NIZORAL) 2 % shampoo Apply topically 2 (two) times a week Apply to damp skin, lather, leave on 5 minutes, and rinse Active azithromycin (ZITHROMAX) 250 mg tablet Take 2 tabs (500 mg) by mouth today, than 1 tab (250 mg) daily for 4 days. 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 Following with mill representative and Dermatology Hiatal hernia 06/01/2024 Assessment & Plan (06/01/2024 4:09 PM CONSTRUCTION TRADES TEACHER): Moderate hiatal hernia seen on chest x-ray completed recently at urgent care Continue omeprazole 20 mg daily for reflux Recurrent cough 06/01/2024 Assessment & Plan (06/01/2024 4:10 PM CONSTRUCTION TRADES TEACHER): Discussed most common causes cough including heartburn, asthma, postnasal drainage. 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 Continue current medication regimen: synthroid 75mcg Recent lab results requested Osteopenia of multiple sites 05/31/2024 Assessment & Plan (06/01/2024 4:08 PM CONSTRUCTION TRADES TEACHER): Continue weight-bearing exercise, calcium and vitamin-D supplementation Previous records requested Follows with [facility] Heart murmur 05/31/2024 Assessment & Plan (06/01/2024 4:07 PM CONSTRUCTION TRADES TEACHER): Had workup in the past Previous records requested for review Consider cardiology referral Atrophic vaginitis 02/02/2017 Overview (05/31/2024): Postmenopausal atrophic vaginitis;Practice ID: [id number] Dyspareunia in female 03/31/2012 Overview (05/31/2024): Dyspareunia;Practice ID: [id number] Encounters Date Type Department Care Team Description 06/03/2024 1:40 PM CONSTRUCTION TRADES TEACHER - 06/03/2024 11:59 PM CONSTRUCTION TRADES TEACHER Hospital Encounter 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; Osteopenia of multiple sites; Lichen sclerosus; Hiatal hernia; Recurrent cough from Last 3 Months Immunizations Immunization Administration Dates Next Due Influenza, Quad, Adjuvantate d, Intramuscular 02/03/2023,12/22/2019 Influenza, Quadrivalent, Hig h Dose, Preservative Free, Intrr 01/28/2022,01/24/2021 Influenza, Trivalent, High D ose, Split, Preservative Free, Intramuscular 01/19/2024,02/07/2019,02/14/2017 Pneumococcal Conjugate PCV 13 02/02/2018 Pneumococcal Polysaccharide PPV23 02/03/2019 RSV Vaccine, Pref, Recombina nt, Subunit, Adjuvanted, PF, IM (Arexvy) 03/11/2023 ZOSTER Recombinant 04/14/2018,02/02/2018 Surgical History Surgery Date Site/Laterality Comments SECTION x 2 HYSTERECTOMY TUMOR REMOVAL top of leg 2007 CHOLECYSTECTOMY Family History Medical History Relation Name Comments Hypertension Brother Penile cancer Father Colon cancer Maternal Grandmother Breast cancer Mother Heart block Mother Hypertension Mother Thyroid cancer Mother Heart attack Paternal Grandfather Heart attack Paternal Grandmother Anxiety disorder Sister Relation Name Status Comments Brother Alive Father Maternal Grandfather Maternal Grandmother Mother Paternal Grandfather Paternal Grandmother Sister Alive Social History Tobacco Use Types Packs/Day Years Used Date Smoking Tobacco: Never Tobacco Cessation:Counseling Given: Not Answered AUDIT-C Answer Date Recorded Q1: How often do you have a drink containing alcohol? 4 or more times a week 05/31/2024 Q2: How many drinks containi ng alcohol do you have on a typical day when you are drinking? 3 or 4 Q3: How often do you have si x or more drinks on one occasion? Never 05/31/2024 PHQ-2 Answer Date Recorded PHQ-2 Total Score (If total score is 3 or more points, staff should administer the PHQ-9) 0 05/31/2024 Comments No Sex and Gender Information Value Date Recorded Sex Assigned at Not on file Legal Sex Female 1:46 AM CONSTRUCTION TRADES TEACHER Gender Identity Not on file Sexual Orientation Not on file Occupation Industry Job Start Date Job End Date Retired Not on file Not on file Not on file Obstetrics History Last Filed Vital Signs Vital Sign Reading Time Taken Comments Blood Pressure 134/86 05/31/2024 9:20 AM CONSTRUCTION TRADES TEACHER Pulse 97 05/31/2024 9:20 AM CONSTRUCTION TRADES TEACHER Temperature 36.1 C (96.9 F) 05/31/2024 9:20 AM CONSTRUCTION TRADES TEACHER Respiratory Rate 16 05/31/2024 9:20 AM CONSTRUCTION TRADES TEACHER Oxygen Saturation 97% 05/31/2024 9:20 AM CONSTRUCTION TRADES TEACHER Inhaled Oxygen Concentration - - Weight 94.2 kg (207 lb 9.6 oz) 05/31/2024 9:20 A M CONSTRUCTION TRADES TEACHER Height 154.3 cm (5' 0.75 ) 05/31/2024 9:20 AM CS T Body Mass Index 39.55 05/31/2024 9:20 AM CONSTRUCTION TRADES TEACHER Plan of Treatment Health Maintenance Due Date Last Done Comments Colon Cancer Screening-Colonoscopy 1950 Hepatitis C Screening 1950 Osteoporosis Screening-Bone Density Scan 1950 DTaP/Tdap/Td Vaccine (1 - Tdap) 1962 Hepatitis B Screening 1969 Well Visit 65+ 02/22/2016 Breast Cancer Screening-Mammogram 06/14/2022 022, 05/17/2020 Covid-19 Vaccine (2023-2 5 season) 2024 01/19/2024, 01/15/2023, 01/16/2021, Additional history exists Depression Screening 05/31/2025 05/31/2024, 05/31/19 Fall Risk Assessment 05/31/2025 05/31/2024 Zoster Vaccine Completed 04/14/2018, 02/02/2018 Pneumococcal vaccine 65+ Completed 02/03/2019, 01/18 Influenza Vaccine Completed 01/19/2024, , 01/28/2022, Additional history exists Procedures Procedure Name Priority Date/Time Associated Diagnosis Comments US CAROTIDS DUPLEX BILATERAL Schedule Routine, Read Routine (OP Routine) 06/03/2024 2:46 PM CONSTRUCTION TRADES TEACHER Stenosis of carotid artery, unspecified laterality Other cerebrovascular disease LIPID PANEL Routine 04/21/2024 9:34 AM CONSTRUCTION TRADES TEACHER from Last 3 Months Results * Vl US Carotids (06/03/2024 2:46 PM CONSTRUCTION TRADES TEACHER) Anatomical Region Laterality Modality Vascular Bilateral Ultrasound 06/03/2024 2:04 PM CONSTRUCTION TRADES TEACHER Narrative 06/03/2024 3:28 PM CONSTRUCTION TRADES TEACHER Carotid Duplex Ultrasound Report Patient Name: DORIS ARSHAD L : 1950 (74y 3m) Study Date: 06/03/2024 2:04:24 PM Gender: F Portfolio Consultant: SAMRA Blanco Ref Provider: KACY SOSA Quality: Adequate Order Provider: KACY SOSA PROCEDURES: Carotid Report: Carotid duplex examination of the extracranial arteries was performed using 2D, color and spectral Doppler. INDICATIONS: I65.29 Occlusion and stenosis of unspecified carotid artery and I67.89 Other cerebrovascular disease. COMPARISONS: No prior exams. MEASUREMENTS: Right Value Left Value RT Prox CCA PSV 98 cm/sec LT Prox CCA PSV 68 cm/sec RT Prox CCA EDV 20 cm/sec LT Prox CCA EDV 14 cm/sec RT Distal CCA PSV 74 cm/sec LT Distal CCA PSV 59 cm/sec RT Distal CCA EDV 24 cm/sec LT Distal CCA EDV 20 cm/sec RT Prox ICA PSV 46 cm/sec LT Prox ICA PSV 54 cm/sec RT Prox ICA EDV 13 cm/sec LT Prox ICA EDV 17 cm/sec RT Mid ICA PSV 84 cm/sec LT Mid ICA PSV 111 cm/sec RT Mid ICA EDV 37 cm/sec LT Mid ICA EDV 43 cm/sec RT Distal ICA PSV 72 cm/sec LT Distal ICA PSV 75 cm/sec RT Distal ICA EDV 24 cm/sec LT Distal ICA EDV 35 cm/sec RT ECA Prx PSV 96 cm/sec LT ECA Prx PSV 72 cm/sec Rt Vert Dst PSV 44 cm/sec Lt Vert Dst PSV 55 cm/sec FINDINGS: Rt Internal Carotid Artery: The plaque in the right internal carotid artery appears to be heterogeneous and smooth. Rt External Carotid Artery: Patent right external carotid artery with evidence of atherosclerotic disease present. Rt Vertebral Artery: The right vertebral artery is patent with antegrade flow. Lt Internal Carotid Artery: The plaque in the left internal carotid artery appears to be heterogeneous and smooth. Lt External Carotid Artery: The left external carotid artery is patent without evidence of atherosclerotic plaque. Lt Vertebral Artery: The left vertebral artery is patent with antegrade flow. CONCLUSIONS: 1. The right internal carotid artery disease is consistent with a less than 50% stenosis. 2. The left internal carotid artery disease is consistent with a less than 50% stenosis. 3. Normal, antegrade flow is noted in bilateral vertebral arteries. ATTESTATION: I have reviewed and interpreted the pertinent images and measurements of this study. I attest to the conclusions in the final report that is provided above. Electronically Signed By: Bruce Santos MD 06/03/2024 3:13:42 PM CONSTRUCTION TRADES TEACHER Procedure Note Bruce Santos MD - 06/03/2024 Carotid Duplex Ultrasound Report Patient Name: DORIS ARSHAD L : 1950 (74y 3m) Study Date: 06/03/2024 2:04:24 PM Gender: F Portfolio Consultant: SAMRA Blanco Ref Provider: KACY SOSA Quality: Adequate Order Provider: KACY SOSA PROCEDURES: Carotid Report: Carotid duplex examination of the extracranial arterieswas performed using 2D, color and spectral Doppler. INDICATIONS: I65.29 Occlusion and stenosis of unspecified carotid artery and I67.89Other cerebrovascular disease. COMPARISONS: No prior exams. MEASUREMENTS: Right Value Left Value RT Prox CCA PSV 98 cm/sec LT Prox CCA PSV 68 cm/sec RT Prox CCA EDV 20 cm/sec LT Prox CCA EDV 14 cm/sec RT Distal CCA PSV 74 cm/sec LT Distal CCA PSV 59 cm/sec RT Distal CCA EDV 24 cm/sec LT Distal CCA EDV 20 cm/sec RT Prox ICA PSV 46 cm/sec LT Prox ICA PSV 54 cm/sec RT Prox ICA EDV 13 cm/sec LT Prox ICA EDV 17 cm/sec RT Mid ICA PSV 84 cm/sec LT Mid ICA PSV 111 cm/sec RT Mid ICA EDV 37 cm/sec LT Mid ICA EDV 43 cm/sec RT Distal ICA PSV 72 cm/sec LT Distal ICA PSV 75 cm/sec RT Distal ICA EDV 24 cm/sec LT Distal ICA EDV 35 cm/sec RT ECA Prx PSV 96 cm/sec LT ECA Prx PSV 72 cm/sec Rt Vert Dst PSV 44 cm/sec Lt Vert Dst PSV 55 cm/sec FINDINGS: Rt Internal Carotid Artery: The plaque in the right internal carotidartery appears to be heterogeneous and smooth. Rt External Carotid Artery: Patent right external carotid artery withevidence of atherosclerotic disease present. Rt Vertebral Artery: The right vertebral artery is patent with antegradeflow. Lt Internal Carotid Artery: The plaque in the left internal carotid arteryappears to be heterogeneous and smooth. Lt External Carotid Artery: The left external carotid artery is patentwithout evidence of atherosclerotic plaque. Lt Vertebral Artery: The left vertebral artery is patent with antegradeflow. CONCLUSIONS: 1. The right internal carotid artery disease is consistent with a lessthan 50% stenosis. 2. The left internal carotid artery disease is consistent with a less than50% stenosis. 3. Normal, antegrade flow is noted in bilateral vertebral arteries. ATTESTATION: I have reviewed and interpreted the pertinent images and measurements ofthis study. I attest to the conclusions in the final report that is provided above. Electronically Signed By: Bruce Santos MD 06/03/2024 3:13:42 PM CONSTRUCTION TRADES TEACHER Kacy FARRIS [facility] US PROCEDURES Final Result * Lipid panel (04/21/2024 9:34 AM CONSTRUCTION TRADES TEACHER) SCRIBED Cholesterol, Total 180 - - - EXTERNAL LAB SCRIBED HDL 55 - - - EXTERNAL LAB SCRIBED LDL 99 - - - EXTERNAL LAB SCRIBED Triglycerides 151 - - - EXTERNAL LAB Blood 04/21/2024 9:34 AM CONSTRUCTION TRADES TEACHER Historical Provider LAB BLOOD ORDERABLES Bettina delgado Result EXTERNAL LAB from Last 3 Months Insurance [employer]IC[employer] [place] [employer] Care Teams Associate Juvenile Court Judge Relationship Specialty Start Date End Date Kacy Sosa PA [address] [facility] [address] [place] [address] PCP - General Family Medicine 05/31/24
--- OUTSIDE RECORDS SUMMARY | 2024-07-07 08:39 | XMS_ITS | Encounter Summary ---
Author Organization [facility] Address [address] [place] [address] Care Team Providers Care Patient Service Rep Name Role Phone Ramiro George Primary Care Provider [phone] Encounter Details Date Type Department Care Team (Late st Contact Info) Description 05/30/2020 Lab Requisition [facility] [address] [place] [phone] Ilsa Gonzalez DO [address] [place] [address] Social History Tobacco Use Types Packs/Day Years Used Date Smoking Tobacco: Never Alcohol Use Standard Drinks/Week Comments Yes 0.8 (1 standard drink = 0.6 oz p ure alcohol) Sex and Gender Information Value Date Recorded Sex Assigned at Not on file Gender Identity Not on file Sexual Orientation Not on file documented as of this encounter Plan of Treatment Not on file documented as of this encounter Procedures Procedure Name Priority Date/Time Associated Diagnosis Comments DERMATOPATHOLOGY Routine 05/29/2020 12:0 0 AM UNEMPLOYMENT BENEFITS CLAIMS TAKER documented in this encounter Results * DERMATOPATHOLOGY (05/29/2020 12:00 AM UNEMPLOYMENT BENEFITS CLAIMS TAKER) Case Report Dermatopathology Report Case: [id number] Authorizing Provider: Ilsa Gonzalez DO Collected: 05/29/2020 12:00 AM Ordering Location: [facility] Care DermPath Lab Received: 05/30/2020 11:34 AM Pathologist: Gabrielle Isabel MD Specimen: Skin, left chest 4:16 PM UNEMPLOYMENT BENEFITS CLAIMS TAKER DERMATOPATHOLOGY LABORATORY Final Diagnosis Specimen A. SKIN, left chest: HYPERPLASTIC (HYPERTROPHIC) ACTINIC KERATOSIS, INFLAMED (L57.0) (see microscopic description) 4:16 PM [facility] DERMATOPATHOLOGY LABORATORY Clinical History ISK R/O NMSC. 4:16 PM [facility] DERMATOPATHOLOGY LABORATORY Gross Description Specimen A: Received is one formalin filled container labeled with the patient's name and designated left chest. The specimen consists of a shave measuring 2m3l1ie. Jar 0. 4:16 PM [facility] DERMATOPATHOLOGY LABORATORY Microscopic Description Specimen A. SKIN, left chest: There is hyperkeratosis alternating with parakeratosis. There is epidermal hyperplasia with disorderly maturation of keratinocytes with nuclear pleomorphism confined to the lower half of the epidermis. The lesion is inflamed. 4:16 PM [facility] DERMATOPATHOLOGY LABORATORY Disclaimer An external and internal positive and negative controls are appropriate for the histochemical, immunohistochemical and immunofluorescence stain(s) in this case (if any), except where stated explicitly. The performance characteristics of the stain(s) cited in this report were developed and its performance characteristic determined by the Dermatopathology Laboratory at [facility], directed by Dr. Cassidy Bedolla. These tests need not be, and therefore are not, approved by the [place] Food and Drug Administration. The tests are used for clinical purposes. Billing Codes Specimen Charges Stain Charges 80528 1 4:16 PM [facility] DERMATOPATHOLOGY LABORATORY Embedded Images 4:16 PM [facility] DERMATOPATHOLOGY LABORATORY Pathology/Cytolog y TISSUE SPECIMEN FROM SKIN / Unknown 05/29/2020 05/30/2020 11:34 AM UNEMPLOYMENT BENEFITS CLAIMS TAKER Ilsa Gonzalez DO LAB - PATHOLOGY/C YTOLOGY ORDERABLES DERMATOPATHOLOGY LABORATORY [facility] - Department of Dermatology [address], [address] [phone] documented in this encounter Visit Diagnoses Not on filedocumented in this encounter Care Teams Patient Service Rep Relationship Specialty Start Date End Date Ramiro George DO [address] [place] [address] PCP - General 07/19/13 documented as of this encounter
--- OUTSIDE RECORDS SUMMARY | 2024-07-07 08:39 | XMS_ITS | Referral Summary ---
Author Organization [address] Address [address] [phone] Care Team Providers Care Heliotherapist Name Role Phone Kacy Sosa Primary Care Provider + Encounters Date Type Department Care Team Description 06/03/2024 1:40 PM ONLINE SERVICES MANAGER - 06/03/2024 11:59 PM ONLINE SERVICES MANAGER Hospital Encounter [facility] [address] [place] [phone] Stenosis of carotid artery, unspecified laterality; Other cerebrovascular disease Discharge Disposition: Discharge to home or self care 05/31/2024 9:30 AM ONLINE SERVICES MANAGER Office Visit [facility] [address] [place] [phone] Kacy Sosa PA Stenosis of carotid artery, unspecified laterality (Primary Dx); Other cerebrovascular disease; Heart murmur; 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 Following with spin tank tender and Dermatology Hiatal hernia 06/01/2024 Assessment & Plan (06/01/2024 4:09 PM ONLINE SERVICES MANAGER): Moderate hiatal hernia seen on chest x-ray completed recently at urgent care Continue omeprazole 20 mg daily for reflux Recurrent cough 06/01/2024 Assessment & Plan (06/01/2024 4:10 PM ONLINE SERVICES MANAGER): Discussed most common causes cough including heartburn, asthma, postnasal drainage. 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 Continue current medication regimen: synthroid 75mcg Recent lab results requested Osteopenia of multiple sites 05/31/2024 Assessment & Plan (06/01/2024 4:08 PM ONLINE SERVICES MANAGER): Continue weight-bearing exercise, calcium and vitamin-D supplementation Previous records requested Follows with [facility] Heart murmur 05/31/2024 Assessment & Plan (06/01/2024 4:07 PM ONLINE SERVICES MANAGER): Had workup in the past Previous records requested for review Consider cardiology referral Atrophic vaginitis 02/02/2017 Overview (05/31/2024): Postmenopausal atrophic vaginitis;Practice ID: 0001 Dyspareunia in female 03/31/2012 Overview (05/31/2024): Dyspareunia;Practice ID: 0001 Immunizations Immunization Administration Dates Next Due Influenza, Quad, Adjuvantate d, Intramuscular 02/03/2023,12/22/2019 Influenza, Quadrivalent, Hig h Dose, Preservative Free, Intrr 01/28/2022,01/24/2021 Influenza, Trivalent, High D ose, Split, Preservative Free, Intramuscular 01/19/2024,02/07/2019,02/14/2017 Pneumococcal Conjugate PCV 13 02/02/2018 Pneumococcal Polysaccharide PPV23 02/03/2019 RSV Vaccine, Pref, Recombina nt, Subunit, Adjuvanted, PF, IM (Arexvy) 03/11/2023 ZOSTER Recombinant 04/14/2018,02/02/2018 Social History Tobacco Use Types Packs/Day Years [...] on file Legal Sex Female 1:46 AM ONLINE SERVICES MANAGER Gender Identity Not on file Sexual Orientation Not on file Occupation Industry Job Start Date Job End Date Retired Not on file Not on file Not on file Last Filed Vital Signs Vital Sign Reading Time Taken Comments Blood Pressure 134/86 05/31/2024 9:20 AM ONLINE SERVICES MANAGER Pulse 97 05/31/2024 9:20 AM ONLINE SERVICES MANAGER Temperature 36.1 C (96.9 F) 05/31/2024 9:20 AM ONLINE SERVICES MANAGER Respiratory Rate 16 05/31/2024 9:20 AM ONLINE SERVICES MANAGER Oxygen Saturation 97% 05/31/2024 9:20 AM ONLINE SERVICES MANAGER Inhaled Oxygen Concentration - - Weight 94.2 kg (207 lb 9.6 oz) 05/31/2024 9:20 A M ONLINE SERVICES MANAGER Height 154.3 cm (5' 0.75 ) 05/31/2024 9:20 AM CS T Body Mass Index 39.55 05/31/2024 9:20 AM ONLINE SERVICES MANAGER Plan of Treatment Not on file Procedures Procedure Name Priority Date/Time Associated Diagnosis Comments US CAROTIDS DUPLEX BILATERAL Schedule Routine, Read Routine (OP Routine) 06/03/2024 2:46 PM ONLINE SERVICES MANAGER Stenosis of carotid artery, unspecified laterality Other cerebrovascular disease LIPID PANEL Routine 04/21/2024 9:34 AM ONLINE SERVICES MANAGER from Last 3 Months Results * Vl US Carotids (06/03/2024 2:46 PM ONLINE SERVICES MANAGER) Anatomical Region Laterality Modality Vascular Bilateral Ultrasound 06/03/2024 2:04 PM ONLINE SERVICES MANAGER Narrative 06/03/2024 3:28 PM ONLINE SERVICES MANAGER Carotid Duplex Ultrasound Report Patient Name: DORIS ARSHAD L : 1950 (74y 3m) Study Date: 06/03/2024 2:04:24 PM Gender: F X Ray Tech: SAMRA Blanco Ref Provider: KACY SOSA Quality: [...] By: Bruce Santos MD 06/03/2024 3:13:42 PM ONLINE SERVICES MANAGER Procedure Note Bruce Santos MD - 06/03/2024 Carotid Duplex Ultrasound Report Patient Name: DORIS ARSHAD L : 1950 (74y 3m) Study Date: 06/03/2024 2:04:24 PM Gender: F X Ray Tech: SAMRA Blanco Ref Provider: KACY SOSA Quality: [...] By: Bruce Santos MD 06/03/2024 3:13:42 PM ONLINE SERVICES MANAGER [place] Kacy [place]ARRIS [facility] [place]ED[place] Final Result * Lipid panel (04/21/2024 9:34 AM ONLINE SERVICES MANAGER) SCRIBED Cholesterol, Total 180 - - - EXTERNAL LAB SCRIBED HDL 55 - - - EXTERNAL LAB SCRIBED LDL 99 - - - EXTERNAL LAB SCRIBED Triglycerides 151 - - - EXTERNAL LAB Blood 04/21/2024 9:34 AM ONLINE SERVICES MANAGER us Historical Provider LAB BLOOD ORDERABLES Bettina delgado Result EXTERNAL LAB from Last 3 Months Insurance MEDICARE [facility] Address: [facility] [address] [place] [address] [facility] [place] Care Teams Heliotherapist Relationship Specialty Start Date End Date Kacy Sosa PA [address] [place] [address] PCP - General Family Medicine 05/31/24
--- OUTSIDE RECORDS SUMMARY | 2024-07-07 08:39 | XMS_ITS | Data Portability ---
Author Organization [facility] Address [address] [place] [address] Care Team Providers Care [employer] Professional Name Role Phone KERRI DYKES Primary Care Provider Assessment Encounter Date Assessment Date Assessment LastModified by Organization Details LastModified Time 05/04/2020 05/04/2020 Annual gynecological exam performed. Patient will come back in a year unless there are new symptoms. Not available 05/03/2020 15:22:16 06/07/2021 06/07/2021 Annual gynecological exam performed. Patient will come back in a year unless there are new symptoms. Not available 06/07/2021 12:03:37 06/24/2023 06/24/2023 Annual gynecological exam performed. Patient will come back in a year unless there are new symptoms. [email or web address] Not available 06/24/2023 11:53:31 Plan of Treatment Reminders Order Date Submit Date Provider Last Modified By Organization Details Last Modified Time Details Appointments None recorded. Lab None recorded. Referral None recorded. Procedures None recorded. Surgeries None recorded. Imaging MAMMO, screening, bilateral [address], [address], [place], [address], 4 15:05:45 DEXA, axial skeleton + vertebral fracture assessment [address], [address], [place], [address], 4 15:05:44 DEXA, axial skeleton + vertebral fracture assessment 2021 022 [facility], [address], [place], [address], 2 15:15:36 Medication Orders triamcinolo ne acetonide 0.1 % topical ointment 2023 024 [facility] #[id number], [address] [facility], [place], [place], [id number], 4 12:14:25 Vagifem 10 mcg vaginal tablet [address] [facility]99588, [address], [place], [place], [id number], 4 11:58:39 nystatin 100,000 unit/gram topical ointment 2021 022 [facility] #[id number], [address], [place], [place], [id number], 2 11:31:00 triamcinolo ne acetonide 0.5 % topical ointment [email or web address] [place] [address] [facility] #74447, [address] [facility], [place], [place], [id number], 4 12:13:08 Intrarosa 6.5 mg vaginal insert 2020 [address] [facility], [address], [place], [place], [id number], 2 12:06:07 Imvexxy Starter Pack 10 mcg vaginal insert, dose pack 2020 021 [address] [facility], [address], [place], [place], [id number], 2 12:06:04 Patient TargetsNo targets recorded. Patient InstructionsNo instructions recorded. Reason for Referral None Reported. 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 Elect kelly rader d by Taco Rodríguez MD on 022 at 9:33 AM ----- ----- ----- ----- ----- ----- ----- ----- ----- ----- ----- ----- ----- ----- ----- ----- ----- ---- COMME NT: Histo logic secti ons show liche noid inter face infla mmato ry react ion with focal epide rmal atrop hy and hyali nizat ion of the super ficia l dermi s. GMS stain is negat geovany for funga l organ isms. There is no evide nce of dyspl sandra. 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 Liche n planu s is also consi dered in the diffe renti al. Clini tal corre latio n is recom duncan d. This case has been revie wed by intra depar tment al consu ltati on, with agree ment. CLINI TAL INFOR MATIO N: not provi ded MICRO SCOPI C DESCR IPTIO N: A micro scopi c exami natio n was perfo rmed. GROSS DESCR IPTIO N: A. Labia Major a, Right . The speci men is label ed with the patie nt's name, demog raphi cs and vulv ar BX right labia major a . Recei quin in forma denice is a 0.3 cm fragm ent of white tissu e. It is submi tted all in casse tte A1. Gross ed by Antonio Meléndez on Not Available [facility] (Lab) [address], [place], [address], 06/21/2021 10:37:03 05/17/19 21 MAMMO , scree rahul, bilat eral No observ ation record ed. [facility] [address], [place], [address], 05/22/2020 17:30:13 06/14/19 22 MAMMO , scree rahul, bilat eral No observ ation record ed. [facility] [address], [place], [address], 06/14/2021 10:05:03 09/03/19 22 DEXA, axial skele ton + verte bral fract ure asses sment No observ ation record ed. [facility] [address], [place], [address], 09/10/2021 05:06:19 06/12/19 23 06/12/2022 imagi ng/di agnos tic resul t No observ ation record ed. [address], [place], [address], 06/24/2023 12:05:22 Result Notes None recorded. Problems Name Problem SNOMED Code Status Onset Date Resolution Date Notes Provider Name and Address Organization Details Recorded Time Atrophic vaginiti s [id number] Completed 201606/07/2021 Postmeno pausal atrophic vaginiti s;Practi ce ID: 0001 Flor Wilson [facility] 2 09:57:11 Lump in lower outer quadrant of left breast [id number] 4105 Completed 201806/07/2021 Unspecif ied lump in the left breast, lower outer quadrant ;Practic e ID: 0001 Flor Wilson [facility] 2 09:57:[address] Concept Completed 201506/07/2021 Well woman check w/o abnormal finding; Recorded Elsewher e: No Locat ion: [facility] S ource: EHR Checker And Packer chelsie: N Practi ce ID: 0001 Bin lable Time: 03:30:00 PM Flor Wilson [facility] 2 09:57:25 Adult health examinat ion Completed 201106/07/2021 Routine Medical Exam;Rec orded Elsewher e: No Locat ion: [facility] S ource: EHR Checker [employer] Packer chelsie: N Practi ce ID: 0001 Bin lable Time: 04:30:00 PM Flor cheek [facility] 2 09:57:[address] Concept Completed 201806/07/2021 Encntr for general adult medical exam w/o abnormal findings ;Practic e ID: 0001 Flor Wilson [facility] 2 09:57:23 Speciali zed medical examinat ion Completed 201006/07/2021 Routine gynecolo gical examinat ion;Prac richelle ID: 0001 Flor Wilson [facility] 2 09:57:26 Screenin g for malignan t neoplasm of rectum Completed 201406/07/2021 Encounte r for screenin g for malignan t neoplasm of rectum;P ractice ID: 0001 Flor Wilson [facility] 2 09:57:21 Screenin g for malignan t neoplasm of cervix Completed 201306/07/2021 Pap Smear;Pr actice ID: 0001 Flor Wilson [facility] 2 09:57:18 Screenin g for malignan t neoplasm of colon Completed 201006/07/2021 Special screenin g for malignan t neoplasm s, colon;Pr actice ID: 0001 Flor Wilson [facility], [facility] 2 09:57:19 Vaginiti s and vulvovag initis Completed 201006/07/2021 Vaginiti s and vulvovag initis, unspecif ied;Prac richelle ID: 0001 Flor Wilson [facility] 2 09:57:28 Disorder of bone and articula r cartilag e [id number] Completed 201106/07/2021 Osteopen ia;Pract ice ID: 0001 Flor Wilson [facility] 2 09:57:13 Dyspareu jomar [id number] Completed 201106/07/2021 Dyspareu jomar;Prac richelle ID: 0001 Flor Wilson [facility] 2 09:57:14 Problem Notes None recorded. Procedures Surgical History Date Name Laterality Status Provider Name and Address Organization Details Recorded Time 024 Date of Last Pap Smear completed Diane [facility] 06/24/2023 11:59:47 023 Date of Last Mammogram completed Diane [facility] 06/24/2023 12:00:16 022 Most Recent Bone Density completed Flor Wilson [facility] 10/11/2021 11:10:43 022 Vulvar Biopsy completed Rima Devine [facility] [address], [place], [address], [facility] 06/19/2021 11:40:13 022 biopsy of vulva completed [facility] 10/11/2021 11:12:16 020 Date of Last Colonoscopy completed [facility] 06/07/2021 12:04:41 020 completed [facility] 06/19/2021 11:13:27 009 Colonoscopy completed [facility] 06/07/2021 10:28:14 998 total abdominal hysterectomy completed [facility] 06/07/2021 10:27:45 986 section completed [facility] 06/07/2021 10:28:32 979 section completed [facility] 06/07/2021 10:28:36 Colonoscopy completed Rima Devine [facility] [address], [place], [address], [facility] 06/07/2021 12:19:15 Tubal Ligation completed [facility] 06/19/2021 11:13:32 Caesarean Section completed Flor [facility] 06/19/2021 11:13:32 Total Hysterectomy completed [facility] 06/19/2021 11:13:32 Cholecystectomy completed Margareth Hunt [facility] 05/03/2020 15:26:19 Imaging Results Imaging Date Name Status LastModified by Organiz ation Details LastModified Time 05/17/2020 MAMMO, screening, bilateral completed [facility] [address], [place], [address], 05/22/2020 17:30:13 06/14/2021 MAMMO, screening, bilateral completed [facility] [address], [place], [address], 06/14/2021 10:05:03 09/02/2021 DEXA, axial skeleton + vertebral fracture assessment completed [facility] [address], [place], [address], 09/10/2021 05:06:19 06/12/2022 imaging/diagnos tic result active [address], [place], [address], 06/24/2023 12:05:22 Procedure Notes None recorded. Medical Equipment None Reported. Allergies Allergen ID Allergen Name Allergen Category Reaction Reaction Severity Criticality Documentation Date Start Date Code Code System Note Provider Name and Address Organization Details Recorded Time 32050 cephalexi n medicatio n Not available Not available Not available 05/03/20202230 RxNorm Margareth Hunt [place], [place] - [facility] 15:22:27 Medications Name Sig Start Date Stop Date Status Note LastModified by Organization Details LastModified Time ketoconaz ole 2 % shampoo WASH SCALP 3 TIMES PER WEEK active Not Available Not Available No t Available azithromy sandie 250 mg tablet FOLLOW PACKAGE DIRECTIO NS 10/11 completed Not Available Not Available Not Available nystatin 100,000 unit/gram topical ointment APPLY TO AFFECTED AREA 2 TO 3 TIMES A WEEK active Not Available Not Available No t Available vitamin E 100 unit capsule 05/04 completed Prescrib ed Elsewher e: Yes Loca tion: [facility] M odify By: rangel tz Encou nter DateTime : 01/13/20 11 02:33:19 PM Not Available Not Available Not Available clobetaso l 0.05 % topical cream apply by topical route 2 times every day a thin layer to the affected area(s) 03/19 completed Prescrib ed Elsewher e: No Locat [facility]: [facility] odify By: deon scanlonuntrohit DateTime : 04/18/20 13 02:22:02 PM Not Available Not Available Not Available triamcino lone acetonide 0.5 % topical ointment APPLY TO AFFECTED AREA 2 TO 3 TIMES WEEKLY NEEDED 06/23 completed Not Available Not Available Not Available levothyro xine 75 mcg tablet TAKE 1 TABLET BY MOUTH EVERY DAY active Not Available Not Available No t Available nystatin- triamcino lone 100,000 unit/gram -0.1 % topical ointment APPLY TO TO THE AFFECTED AREA 2 TIMES A DAY FOR 4 WEEKS THEN ONCE A DAY FOR 4 WEEKS, THEN 2 TO 3 TIMES A WEEK NEEDED FOR 4 WEEKS 10/11 completed Not Available Not Available Not Available terbinafi ne HCl 250 mg tablet TAKE 1 TABLET BY MOUTH EVERY DAY 06/07 completed Not Available Not Available Not Available Synthroid 25 mcg tablet take 1 tablet by oral route every day 04/05 completed Prescrib ed Elsewher e: Yes Loca tion: [facility] odify By: kimmie sam DateTime : 01/13/20 11 02:33:19 PM Not Available Not Available Not Available levothyro xine 50 mcg tablet TAKE 1 TABLET BY MOUTH DAILY 10/11 completed Not Available Not Available Not Available triamcino lone acetonide 0.1 % topical ointment APPLY THIN LAYER TOPICALL Y TO THE AFFECTED AREA TWICE DAILY NEEDED active Not Available Not Available No t Available ranitidin e 150 mg capsule take 1 capsule by oral route 2 times every day 05/04 completed Prescrib ed Elsewher e: Yes Loca tion: [facility] odify By: deon gaona DateTime : 04/03/20 16 03:30:00 PM Not Available Not Available Not Available hydroxych loroquine 200 mg tablet TAKE 1 TABLET BY MOUTH TWICE A DAY active Not Available Not Available No t Available triamcino lone acetonide 0.1 % lotion APPLY TO FRONTAL HAIRLINE TWICE DAILY DIRECTED 06/23 completed Not Available Not Available Not Available Vitamin D2 1,250 mcg (50,000 unit) capsule take 1 capsule (99921GT ITS) by oral route every week 05/04 completed Prescrib ed Elsewher e: No Locat ion: [facility] odify By: gmedical Encount er DateTime : 04/07/20 13 12:02:27 PM Not Available Not Available Not Available ketoconaz ole 2 % topical cream APPLY TO SCALP PATCH TWICE A DAY 06/23 completed Not Available Not Available Not Available clobetaso l 0.05 % scalp solution APPLY SOLUTION TOPICALL Y TWICE DAILY TO HAIRLINE active Not Available Not Available No t Available itraconaz ole 100 mg capsule TAKE 2 CAPSULES BY MOUTH TWICE DAILY X 1 WEEK 06/07 completed Not Available Not Available Not Available lorazepam 2 mg/mL oral concentra te take 0.5 millilit er by oral route 3 times every day 02/02 completed Prescrib ed Elsewher e: Yes Loca tion: [facility] odify By: deon Leal ncounter DateTime : 04/03/20 16 03:30:00 PM Not Available Not Available Not Available Vibramyci n (calcium) 50 mg/5 mL oral syrup take 5 millilit er by oral route every day 05/03 completed Prescrib ed Elsewher e: Yes [facility]ify By: rangel Farias nter DateTime : 01/13/20 11 02:33:19 PM Not Available Not Available Not Available doxycycli ne hyclate 100 mg tablet TAKE 1 TABLET BY MOUTH EVERY DAY active Not Available Not Available No t Available finasteri de 5 mg tablet TAKE 1/2 TABLET BY MOUTH DAILY active Not Available Not Available No t Available amoxicill in 875 mg-potass ium clavulana te 125 mg tablet TAKE 1 TABLET BY MOUTH TWICE DAILY 06/07 completed Not Available Not Available Not Available Stanback Headache Powder 650 mg oral packet 05/03 completed Prescrib ed Elsewher e: Yes [facility]oca [facility] odify By: rangel Farias nter DateTime : 01/13/20 11 02:33:19 PM Not Available Not Available Not Available Vitamins and Minerals tablet 04/03 completed Prescrib ed Elsewher e: Yes Loca tion: [facility] odify By: rangel Farias nter DateTime : 01/15/20 11 08:30:00 AM Not Available Not Available Not Available Premarin 0.625 mg/gram vaginal cream insert (1G) by vaginal route every day cyclical ly, 3 weeks on and 1 week off 03/01 completed Prescrib ed Elsewher e: No Locat ion: [facility] odify By: dereje Johnsono unter DateTime : 04/03/20 16 03:30:00 PM Not Available Not Available Not Available Flovent HFA 44 mcg/actua tion aerosol inhaler inhale 2 puff by inhalati on route 2 times every day 01/14 completed Prescrib ed Elsewher e: Yes Loca tion: [facility] odify By: rangel Farias nter DateTime : 01/15/20 11 08:30:00 AM Not Available Not Available Not Available Calcio Ciera 500 mg tablet 05/03 completed Prescrib ed Elsewher e: Yes Loca tion: [facility] odify By: kimmie sam DateTime : 04/05/20 13 11:30:00 AM Not Available Not Available Not Available aspirin 05/04 completed Not Available Not Available Not Available levothyro xine 06/07 completed Not Available Not Available Not Available calcium 05/04 completed Not Available Not Available Not Available zinc active Not Available Not Availa ble Not Available Fish Oil 05/04 completed Not Available Not Available Not Available doxycycli ne calcium 05/04 completed Not Available Not Available Not Available collagen active Not Available Not Avai lable Not Available omega-3 fatty acids-fis h oil 340 mg-1,000 mg capsule 05/03 completed Prescrib ed Elsewher e: Yes Loca tion: [facility] odify By: rangel Farias nter DateTime : 01/13/20 11 02:33:19 PM Not Available Not Available Not Available cholecalc iferol (vitamin D3) 1,250 mcg (50,000 unit) capsule TAKE 1 CAPSULE BY MOUTH WEEKLY 06/23 completed Not Available Not Available Not Available D3 Plus K2 Dots 06/07 completed Not Available Not Available Not Available estradiol 10 mcg vaginal tablet INSERT1 TABLET PER VAGINA TWICE WEEKLY @ HS 06/23 completed Not Available Not Available Not Available Probiotic active Not Available Not Kiesha ilable Not Available Centrum Silver Women active Not Available Not Available Not Available Intrarosa 6.5 mg vaginal insert Insert 1 vaginal insert every day by vaginal route. 06/07 completed Not Available Not Available Not Available Imvexxy Starter Pack 10 mcg vaginal insert, dose pack INSERT 1 VAGINAL INSERT (10 MCG) BY VAGINAL ROUTE ONCE DAILY FOR 2 WEEKS THEN 1 INSERT (10 MCG) TWICE WEEKLY FOR DURATION OF USE 06/07 completed Not Available Not Available Not Available Paxlovid 300 mg (150 mg x 2)-100 mg tablets in a dose pack TAKE 2 TABLETS (NIRMATR FLACO) AND TAKE 1 TABLET (RITONAV IR) BY MOUTH TWICE A DAY FOR 5 DAYS active Not Available Not Available No t Available Vitals Date Recorded Body height Body mass index (BMI) Body weight Systolic blood pressure Diastolic blood pressure Provider Name and Address Organization Details Last Updated DateTime 06/07/2021 154.94 cm 37.8 kg/m2 18412.47 g 110 mm[Hg] 72 mm[Hg] Flor Wilson [facility] 12:04:34 Date Recorded Body height Body mass index (BMI) Body weight Provider Name and Address Organization Details Last Updated DateTime 06/19/2021 154.94 cm 37.8 kg/m2 66315.47 g Flor Wilson [facility] 06/19/2021 11:13:14 Date Recorded Systolic blood pressure Diastolic blood pressure Provider Name and Address Organization Details Last Updated DateTime 06/19/2021 122 mm[Hg] 70 mm[Hg] Rima Devine, [facility]- [address], [place], [address], [facility] 06/19/2021 11:36:18 Date Recorded Body height Body mass index (BMI) Body weight Provider Name and Address Organization Details Last Updated DateTime 10/11/2021 154.94 cm 35.9 kg/m2 62199.19 g Flor Wilson [facility] 10/11/2021 11:10:29 Date Recorded Systolic blood pressure Diastolic blood pressure Provider Name and Address Organization Details Last Updated DateTime 10/11/2021 126 mm[Hg] 80 mm[Hg] Rima Devine, [facility]- [address], [place], [address], [facility] 10/14/2021 20:31:57 Date Recorded Body weight Systolic blood pressure Diastolic blood pressure Provider Name and Address Organization Details Last Updated DateTime 06/24/2023 17986.28 g 140 mm[Hg] 82 mm[Hg] Diane Serrano [facility] 06/24/2023 11:53:21 Date Recorded Body height Body mass index (BMI) Body weight Systolic blood pressure Diastolic blood pressure Provider Name and Address Organization Details Last Updated DateTime 05/04/2020 157.48 cm 34.4 kg/m2 51440.08 g 119 mm[Hg] 81 mm[Hg] Margareth Hunt [facility] 10:34:16 Social History Question Answer Notes LastModified by Organizat ion Details LastModified Time Tobacco Smoking Status Never Smoker Mira cheek, [facility] 10/11/2021 10:56:46 Do You Have An Advance Directive? Yes Information n ot available 06/07/2021 What Is Your Level Of Alcohol Consumption? Occasional Information not available 05/04/2020 How Many Years Have You Consumed Alcohol? 40 Information not available 05/04/2020 Are You Blind Or Do You Have Difficulty Seeing? No Information n ot available 06/07/2021 What Is Your Level Of Caffeine Consumption? Moderate Information not available 05/04/2020 How Much Tobacco Do You Chew? None Information not available 06/07/2021 In The 14 Days Before Symptom Onset, Have You Had Close Contact With A Laboratory-confirm ed COVID-19 While That Case Was Ill? No Information n ot available 06/07/2021 In The 14 Days Before Symptom Onset, Have You Had Close Contact With A Person Who Is Under Investigation For COVID-19 While That Person Was Ill? No Information not available 06/07/2021 Have You Been To An Area Known To Be High Risk For COVID-19? No Information not available 06/07/2021 Are You Deaf Or Do You Have Serious Difficulty Hearing? No Information not available 06/07/2021 What Type Of Diet Are You Following? REGULAR Information n ot available 06/07/2021 What Is The Highest Grade Or Level Of School You Have Completed Or The Highest Degree You Have Received? [id number] Information not available 06/07/2021 What Is Your Occupation? Retired Information not available 06/07/2021 How Many Days Of Moderate To Strenuous Exercise, Like A Brisk Walk, Did You Do In The Last 7 Days? 3 Information not available 10/11/2021 On Those Days That You Engage In Moderate To Strenuous Exercise, How Many Minutes, On Average, Do You Exercise? 120 Information not available 10/11/2021 Are There Any Guns Present In Your Home? No Information not available 06/07/2021 Have You Ever Been Counseled For Unhealthy Alcohol Use? No Information not available 10/11/2021 Do You Use Protection During Sex? No Information not available 06/07/2021 Do You Use Your Seat Belt Or Car Seat Routinely? Yes Information not available 06/07/2021 Do You Have Smoke And Carbon Monoxide Detectors In Your Home? Yes Information not available 06/07/2021 How Much Tobacco Do You Smoke? No Information not available 06/07/2021 Do You Feel Stressed (tense, Restless, Nervous, Or Anxious, Or Unable To Sleep At Night)? [id number] Information not available 06/07/2021 Do You Use Any Illicit Or Recreational Drugs? No Information not available 05/04/2020 Do You Use Sunscreen Routinely? Yes Information not available 06/07/2021 Has Tobacco Cessation Counseling Been Provided? No Information not available 10/11/2021 Have You Used IV Drugs? No Information not available 06/07/2021 Do You Or Have You Ever Used Any Other Forms Of Tobacco Or Nicotine? No Information not available 10/11/2021 How Many Days In The Past Year Have You Consumed 4 Or More Drinks? 3 Information not available 10/11/2021 Sex: Unknown Functional Status Question Answer Note LastModified by Organizat ion Details LastModified Time Do you have difficulty walking or climbing stairs? No Information not available 10/11/2021 Are you able to walk? YESWOREST Information not available 06/07/2021 Are you able to care for yourself? Yes Information not available 10/11/2021 Do you have difficulty dressing or bathing? No Information not available 10/11/2021 What is your exercise level? Moderate Information not available 05/04/2020 Mental Status None recorded. Family History Relationship Description Onset Age of this Age Resolved Age Notes LastModified by Organization Details LastModified Time Father Carcinoma of genital organ Not available 2021 10:56:45 Mother Carcinoma in situ of breast Not available 2021 10:56:45 Mother Congenital heart disease Not available 2021 10:56:45 Mother Disorder of thyroid gland Not available 2020 15:25:20 Mother Malignant tumor of thyroid gland Not available 2021 10:56:45 Mother Hypothyroidi sm Not available 2021 10:56:45 Maternal Grandmother Malignant tumor of colon Not available 2020 15:25:39 Medical History Condition Response Thyroid Problems Y Osteoporosis Y Gynecological History Statement/Question Response Date of Last Mammogram 05/21/2022 On BCP's at Conception? N N STIs/STDs N HPV Vaccine N Current Control Method Hysterectom y Age at First Child 28 If Post Menopausal, Age at Menopause 48 Date of Last Colonoscopy 10/27/2019 Most Recent Bone Density 08/22/2021 Sexually Active? Y Date of DEXA bone scan 08/22/2021 Age of first menstrual cycle 13 Date of Last Pap Smear 06/24/2023 Sexual Problems? Y Desired Control Method Hysterectom y 10/27/2019 Y Obstetrics History GPAL:G 2 P 2 0 0 2 Type Value Full Term 2 Living 2 Total 2 Past Encounters Encounter ID Performer Location Encounter Start Date Encounter Closed Date Diagnosis/Indication Diagnosis SNOMED-CT Code Diagnosis ICD10 Code Diagnosis Note [id number] Rima Devine , [facility] [address] [address] 05/04/2020 10:11:48 05/04/2020 11:08:46 Gynecologic examination 71945841 Z01.419 Take Calcium with Vitamin D 12-1500mg daily. Do monthly self breast exams. It is advised to get annual flu shot in the fall and she could obtain at [facility] or [facility] clinic. If you haven't received the Tdap vaccine in the last 10 years you should obtain one as well. Have mammogram yearly, bone density every 2-3 years and colonoscop y every 5-10 years depending on findings and history. Engage in daily exercise of low impact aerobic exercise 45-60 minutes 4-5 times weekly. Avoid tobacco and illicit drugs as well as using moderation with alcohol intake less than 1-2 8 oz beverages daily. This lifestyle behavior pattern will lead to less health conditions and longer life span. If BMI greater than 25 weight watchers or dietary consult advised. Questions have been answered. Patient appears to understand remedios pardo, but if you have any further questions call or respond to this email Dyspareunia [id number] N94 .10 Onn Yuvafem 10mcg 2x/wk but voices it is quite expensive. We discussed trial of Intrarosa & Imvexxy. She will take time to trial both. WIll have Rashmi who handles Rx's contact her with specialty pharm & pricing informatiprincess n and she can decide which works best for her & which is more cost effective. Samples given. She understand s she is not to use both at one time. Will trial Intrarosa x 2wks, then Will trial Imvexxy x 3wks and see which she likes the best Understand ing voices of remedios pardo. WIll decide on f/u time frame once decides which she likes. [id number] [facility] [address] [address] 06/07/2021 11:49:22 06/07/2021 14:23:31 Gynecologic examination [id number] Z01.419 Take Calcium with Vitamin D 12-1500mg daily. Do monthly self breast exams. It is advised to get annual flu shot in the fall and she could obtain at [facility] or [facility] care clinic. If you haven't received the Tdap vaccine in the last 10 years you should obtain one as well. Have mammogram yearly, bone density every 2-3 years and colonoscop y every 5-10 years depending on findings and history. Engage in daily exercise of low impact aerobic exercise 45-60 minutes 4-5 times weekly. Avoid tobacco and illicit drugs as well as using moderation with alcohol intake less than 1-2 8 oz beverages daily. This lifestyle behavior pattern will lead to less health conditions and longer life span. If BMI greater than 25 weight watchers or dietary consult advised. Questions have been answered. Patient appears to understand remedios pardo, but if you have any further questions call or respond to this email Postmenopausal state [phone] Z78.0 Skin irritation [id number] 7 L30.9 Return to office for vulvar bx 30mins slot we need to confirm if the issues going on are connected with Lichens sclerosis/ Planus.Silvia gnosed with Alopecia-- derm mentioned that her issues down below might be connected to Lichen's planus/scl erosis. Follow VCG's daily moisturizi ng.Will determine if the current issue is the reason for her dyspareuni a or if her vaginal estrogen regimen needs to be changed altoghter to make sexual activity more comfortabl e. [id number] [facility] [address] [address] 06/19/2021 10:53:51 06/19/2021 11:48:16 Discoloration of skin [id number] R23.8 Vulvar biopsy completedP ost-proced ure remedios pardo provided.W ill contact patient with resutls & the necessary f/u. [id number] Rima Devine [facility] [address],[facility] [place] [address] 10/11/2021 10:56:04 10/14/2021 16:26:52 Genital lichen sclerosus [id number] L90.0 Doing exceptiona lly well.Vagin al irritation & areas of LS are well managed.We will continue current rx ointment daily x 4wks & then she will switch to 2-3x/wk moving to prn use.Contin ue VCG's & VagifemF/U PRN Time spent in visit is a total of 26 mins with at least 50% of visit consisting of counseling and review of plan of care. Postmenopa usal osteopenia [id number] M85.80 Reviewed Dexa with calcium recommenda tionsH/O from IOF given with rec'sR/P Dexa x 2yrsOpts to do life style changes vs pharm therapy Atrophic vaginitis [id number] N95.2 Continue this therapy since doing well [id number] Rima Devine [facility] [address],[facility] [place] [address] 06/24/2023 11:48:49 06/24/2023 12:19:46 Gynecologic examination [id number] Z01.419 Take Calcium with Vitamin D 12-1500mg daily. Do monthly self breast exams. It is advised to get annual flu shot in the fall and she could obtain at [facility] or [facility] take care clinic. If you haven't received the Tdap vaccine in the last 10 years you should obtain one as well. Have mammogram yearly, bone density every 2-3 years and colonoscop y every 5-10 years depending on findings and history. Engage in daily exercise of low impact aerobic exercise 45-60 minutes 4-5 times weekly. Avoid tobacco and illicit drugs as well as using moderation with alcohol intake less than 1-2 8 oz beverages daily. This lifestyle behavior pattern will lead to less health conditions and longer life span. If BMI greater than 25 weight watchers or dietary consult advised. Questions have been answered. Patient appears to understand remedios pardo, but if you have any further questions call or respond to this email Pap/hpv--h ysterectom y for non-cancer ous indication s. USPSTF recommends against screening for cervical cancer in women older than 65yo, those who've had a hysterecto my for non-cancer indication s, & who have had adequate prior screening & are not otherwise at high risk for cervical cancer. STD Screen declined Genetic Screen discussed Colon Screen PCP Dexa Screen ordered Routine Labs PCP Postmenopa usal osteopenia [id number] M85.80 Reviewed Dexa with calcium recommenda tionsH/O from IOF given with rec'sOpt'd to do life style changes vs pharm therapy Dexa ordered per guidelines Screening mammography [id number] 133534 Z12.31 Genital li lopez sclerosus [id number] L90.0 Doing exceptiona lly well.Vagin al irritation & areas of LS are well managed.Co ntinue [facility] Health Concerns Section Related Observation LastModified by Organization Detai ls LastModified Time None Recorded Concern Status LastModified by Organization Details LastModified Time None Recorded Advance Directives Directive Y: Payers Encounter Date Sequence Insurance Name Policy Number Policy Lee Covered Member ID Lee Member ID Guarantor Name 05/04/2020 2 [employer] (MEDICARE SUPPLEMENT) Doris Elena Mc Bride [id number] Doris Kassy Hagan 05/04/2020 1 [place] Doris L Hagan [id number] Doris Elena Hagan 06/07/2021 2 [employer] (MEDICARE SUPPLEMENT) Doris Elena Mc Bride [id number] Doris Elena Hagan 06/07/2021 1 [place] Doris Kassy Hagan [id number] Doris L Hagan 06/19/2021 2 [employer] (MEDICARE SUPPLEMENT) Doris Elena Mc Bride [id number] Doris Kassy Hagan 06/19/2021 1 [place] Doris Elena Hagan [id number] Doris L Hagan 10/11/2021 2 [employer] (MEDICARE SUPPLEMENT) Doris Elena Mc Bride [id number] Doris L Hagan 10/11/2021 1 [place] Doris L Hagan [id number] 7 Doris L Hagan 06/24/2023 2 [employer] (MEDICARE SUPPLEMENT) Doris Johnston [id number] Doris Hagan 06/24/2023 1 [place] Doris Hagan [id number] 7 Doris Hagan Notes Date Note Type Note Provider Name and Address Organization Details Recorded Time 05/04/2020 text/html Annual GYNReport ed bypatient.History:no gynecologic complaints Menstrual cycle:Postmenopause/ Full hyst for non cancer indications Urinary symptoms:No hematuria; No incontinence Vulva:No genital lesion Vagina:Normal vaginal discharge Breast:No breast pain; No breast lump; No nipple discharge Current Contraception:Monoga mous relationship Sexual complaints:No sexual complaints; No pain during intercourse; Normal libido Menopausal Symptoms:No menopausal symptoms;Inadequacy of lubrication of vaginal mucosa Psychological symptoms:No depression; No anxiety; No PMDD Preventive measures:Encourage self breast examination; Encourage regular exercise; Encourage no tobacco use; Encourage regular mammograms starting age 40; Needs to schedule mammogram; Up to date on colonoscopy screening BLAYNE Kunz [address], [place], [address], [facility] 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 Post-MenopausalRepor brenden bypatient.Menopausal Symptoms:no menopausal symptoms; normal vaginal lubrication Vaginal Bleeding:history of menopause having occurred; no history of post menopausal bleeding Urinary Symptoms:no hematuria; no incontinence; no nocturia; no urinary frequency Vulva:no genital lesion; no vulvar atrophy Vagina:normal vaginal discharge; no vaginal atrophy Breast:no breast lump; no nipple discharge; no breast pain Sexual Complaints:no sexual complaints Psychological Symptoms:no depression; no anxiety Preventive Measures:encourage regular mammograms starting age 40; encourage self breast examination; encourage regular exercise; encourage no tobacco use; needs to schedule mammogram; history of recent colonoscopy; needs to schedule bone density BLAYNE Kunz [address], [place], [address], [facility] 06/07/2021 14:17:27 06/19/2021 text/html Here today for a vulvar biospy to r/o Lichens or other skin disorder. Rima Devine [facility] [address], [place], [address], [facility] 06/19/2021 11:41:38 10/11/2021 text/html Here today for medication check & recommendations for calcium intake. Rima Devine [facility] [address], [place], [address], [facility] 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 Post-MenopausalRepor brenden bypatient.Menopausal Symptoms:no menopausal symptoms; normal vaginal lubrication Vaginal Bleeding:history of menopause having occurred; no history of post menopausal bleeding Urinary Symptoms:no hematuria; no incontinence; no nocturia; no urinary frequency Vulva:no genital lesion; no vulvar atrophy Vagina:normal vaginal discharge; no vaginal atrophy Breast:no breast lump; no nipple discharge; no breast pain Sexual Complaints:no sexual complaints Psychological Symptoms:no depression; no anxiety Preventive Measures:encourage regular mammograms starting age 40; encourage self breast examination; encourage regular exercise; encourage no tobacco use; needs to schedule mammogram; history of recent colonoscopy; needs to schedule bone density Rima Devine [facility] [address], [place], [address], [facility] 06/24/2023 12:16:51 OBGyn Episode Ob Episode Information Episode Created Date Number of Fetuses Patient Bloodtype Patient rh Status Prepregnancy Weight lbs Domestic Partner Domestic Partner Phone Father Name Tribal Delegate Status 05/03/19 21 1 CLOSED Fetus Data First Name Last Name Admitted to NICU Weight (g) Sex Living Outcome Pediatric Complications Fetus ID Race Codes Race Delivery Type Full Term [id number] Primary Mohsen Calculation Initial Mohsen Date Initial Exam Date Initial Exam Provider Initial Ultrasound Date Last Menstrual Period Date Ultra Sound Weeks Gestation 0 Eighteen To Twenty Week Mohsen Update Ultra Sound Date Fundal Height At Umbil Quickening Date Ultra Sound Latest Weeks Gestation Final Mohsen Confirmed By Final Mohsen Confirmed Date Final Mohsen Date Ultra Sound Latest Days Gestation 0 0 Menstrual History Last Menstrual Date Menses Monthly On Bcp Conception Prior Menses Frequency Hcg Plus Date Menarche Onset Age Delivery Information Delivery Date Delivery Type Labor Anesthesia Weeks Gestation Incision Type Labor Labor Length Hrs Delivered By Post Complications Tubal Sterilization Discharge Date Comments 6 Discharge Information Feeding Method Contraceptive Method Maternal HG B and HCT Levels Ob Episode Information Episode Created Date Number of Fetuses Patient Bloodtype Patient rh Status Prepregnancy Weight lbs Domestic Partner Domestic Partner Phone Father Name Tribal Delegate Status 05/03/19 21 1 CLOSED Fetus Data First Name Last Name Admitted to NICU Weight (g) Sex Living Outcome Pediatric Complications Fetus ID Race Codes Race Delivery Type Full Term [id number] Repeat Mohsen Calculation Initial Mohsen Date Initial Exam Date Initial Exam Provider Initial Ultrasound Date Last Menstrual Period Date Ultra Sound Weeks Gestation 0 Eighteen To Twenty Week Mohsen Update Ultra Sound Date Fundal Height At Umbil Quickening Date Ultra Sound Latest Weeks Gestation Final Mohsen Confirmed By Final Mohsen Confirmed Date Final Mohsen Date Ultra Sound Latest Days Gestation 0 0 Menstrual History Last Menstrual Date Menses Monthly On Bcp Conception Prior Menses Frequency Hcg Plus Date Menarche Onset Age Delivery Information Delivery Date Delivery Type Labor Anesthesia Weeks Gestation Incision Type Labor Labor Length Hrs Delivered By Post Complications Tubal Sterilization Discharge Date Comments 9 Discharge Information Feeding Method Contraceptive Method Maternal HG B and HCT Levels
== END 2024-07-07 08:31 | disposition home or self-care (01) ==
PROVIDERS: PCP Internal Medicine; Visit Provider Nurse Practitioner Obstetrics & Gynecology
DX: Z12.31 Encounter for screening mammogram for malignant neoplasm of breast (principal)
CPT/HCPCS: 77063; 77067